=== PATIENT | female | born 1940 | race African-American/Black ===

== ENCOUNTER 2016-10-21 19:16 | Emergency (ER) | payer MEDICARE ==
[2016-10-21] MEDS ORDERED: ACETAMINOPHEN 325 MG TABLET PO ONE (20:02)
--- NOTE | 2016-10-21 20:05 | ER Document Report ---
ED Medical Screen (RME) - General Stated Complaint: HEAD PAIN Time seen by provider: 20:02 Mode of Arrival: Ambulatory Information source: Patient Notes: 76 yo female with painful scalp lump posterior occiput that started this am, getting more sore since then. No injury. TRAVEL OUTSIDE OF THE [place] IN LAST 30 DAYS: No - Related Data Allergies/Adverse Reactions: No Known Allergies Allergy (Verified 10/21/16 20:01) Past Medical History - Past Medical History Cardiac Medical History: Reports: Hx Hypertension Denies: Hx Coronary Artery Disease, Hx Heart Attack Pulmonary Medical History: Reports: Hx Asthma, Hx Bronchitis, Hx Pneumonia - 10 yrs ago Denies: Hx COPD Neurological Medical History: Denies: Hx Cerebrovascular Accident, Hx Seizures GI Medical History: Reports: Hx Gastroesophageal Reflux Disease Musculoskeltal Medical History: Reports Hx Arthritis Past Surgical History: Reports: Hx Appendectomy, Hx Bowel Surgery - colon resection, Hx Hysterectomy. Denies: Hx Pacemaker - Immunizations Hx Diphtheria, Pertussis, Tetanus Vaccination: Yes Physical Exam - Vital signs Vitals: Temp Pulse Resp BP Pulse Ox 97.8 F 77 16 170/51 H 99 10/21/16 19:25 10/21/16 19:25 10/21/16 19:25 10/21/16 19:25 10/21/16 19:25 Course - Vital Signs Vital signs: Temp Pulse Resp BP Pulse Ox 97.8 F 77 16 170/51 H 99 10/21/16 19:25 10/21/16 19:25 10/21/16 19:25 10/21/16 19:25 10/21/16 19:25
--- NOTE | 2016-10-21 20:35 | ER Document Report ---
ED General - General Chief Complaint: Skin Problem Stated Complaint: HEAD PAIN Mode of Arrival: Ambulatory Notes: Patient is a 76-year-old female who is presenting with 2 days of a progressively more painful bump on her right posterior scalp. Does describe the pain as a dull, aching pain. Touching the area worsens the pain. She has not tried anything to improve the pain. Denies any history of similar symptoms in the past. She has not seen her primary care physician regarding today's concerns. She denies any additional associated symptoms. No drainage from the area. No trauma to the area. TRAVEL OUTSIDE OF THE [place] IN LAST 30 DAYS: No - Related Data Allergies/Adverse Reactions: No Known Allergies Allergy (Verified 10/21/16 20:01) Past Medical History - General Information source: Patient - Social History Smoking Status: Never Smoker Frequency of alcohol use: None Drug Abuse: None Lives with: Spouse/Significant other Family History: Reviewed & Not Pertinent Patient has suicidal ideation: No Patient has homicidal ideation: No - Past Medical History Cardiac Medical History: Reports: Hx Hypertension Denies: Hx Coronary Artery Disease, Hx Heart Attack Pulmonary Medical History: Reports: Hx Asthma, Hx Bronchitis, Hx Pneumonia - 10 yrs ago Denies: Hx COPD Neurological Medical History: Denies: Hx Cerebrovascular Accident, Hx Seizures GI Medical History: Reports: Hx Gastroesophageal Reflux Disease Musculoskeltal Medical History: Reports Hx Arthritis Past Surgical History: Reports: Hx Appendectomy, Hx Bowel Surgery - colon resection, Hx Hysterectomy. Denies: Hx Pacemaker - Immunizations Hx Diphtheria, Pertussis, Tetanus Vaccination: Yes Hx Pneumococcal Vaccination: 12/07/11 Review of Systems - Review of Systems Notes: Constitutional: Negative for fever. Cardiovascular: Negative for chest pain. Respiratory: Negative for shortness of breath. Gastrointestinal: Negative for vomiting Musculoskeletal: Negative for back pain. Skin: Positive for right scalp cyst Neurological: Negative for weakness or numbness. 10 point ROS negative except as marked above and in HPI. Physical Exam - Vital signs Vitals: Temp Pulse Resp BP Pulse Ox 97.8 F 77 16 170/51 H 99 10/21/16 19:25 10/21/16 19:25 10/21/16 19:25 10/21/16 19:25 10/21/16 19:25 Interpretation: Hypertensive Notes: PHYSICAL EXAMINATION: GENERAL: Well-appearing, well-nourished and in no acute distress. HEAD: Atraumatic, normocephalic. EYES: sclera anicteric, conjunctiva are normal. ENT: Moist mucous membranes. NECK: Normal range of motion LUNGS: Normal work of breathing HEART: 2+ radial pulses bilaterally EXTREMITIES: no pitting or edema. No cyanosis. NEUROLOGICAL: No focal neurological deficits. Moves all extremities spontaneously and on command. PSYCH: Normal mood, normal affect. SKIN: Warm, Dry, normal turgor, small 0.5 x 0.5 cm cyst on the right posterior scalp Course - Re-evaluation Re-evalutation: 10/22/16 03:49 Patient presents with findings most consistent with a small cyst on her scalp. No additional symptoms to suggest an associated cellulitis or underlying abscess. Vitals otherwise within normal limits. I've encouraged her to use warm compresses and follow-up with dermatology if this fails to improve. At this time will discharge with return precautions and follow-up recommendations. Verbal discharge instructions given a the bedside and opportunity for questions given. Medication warnings reviewed. Patient is in agreement with this plan and has verbalized understanding of return precautions and the need for primary care follow-up in the next 24-72 hours. - Vital Signs Vital signs: Temp Pulse Resp BP Pulse Ox 97.8 F 66 18 147/68 H 97 10/21/16 21:06 10/21/16 21:06 10/21/16 21:06 10/21/16 21:06 10/21/16 21:06 Discharge - Discharge Clinical Impression: Scalp cyst Condition: Good Disposition: HOME, SELF-CARE Additional Instructions: You have a small cyst on your head. Hot compress to the area 3 times daily. Do not touch or press on the area otherwise. If this does not resolve in the next 1 week, please follow-up with your primary care physician for consideration of a dermatology referral. Please return to the emergency department immediately if you have worsening pain, the area increases in size, you develop spreading redness from the area, you develop flulike symptoms, a fever of greater than 100.4F, or any other symptoms that are concerning to you. You may also take ibuprofen 400 mg every 8 hours as needed for pain in this area. Forms: Elevated Blood Pressure Referrals: MARELY WONG MD [Primary Care Provider] - Follow up as needed
[2016-10-21 21:08] VITALS: BP 147/68
== END 2016-10-21 21:05 | disposition home or self-care (01) ==
LOC: ER 19:16
DX: D23.4 Other benign neoplasm of skin of scalp and neck (principal); I10 Essential (primary) hypertension; J45.909 Unspecified asthma, uncomplicated
CPT/HCPCS: 99283; A9270

== ENCOUNTER 2016-12-23 01:20 | Emergency (ER) | payer MEDICARE ==
[2016-12-23] MEDS ORDERED: LORAZEPAM 1 MG TABLET PO ONE (03:39)
--- NOTE | 2016-12-23 03:43 | ER Document Report ---
ED General - General Chief Complaint: Breathing Difficulty Stated Complaint: POSSIBILE ALLERGIC REACTION Time seen by provider: 03:35 Notes: Patient is a 76-year-old female that comes emergency department for chief complaint of shortness of breath and swelling in her feet on both sides. Patient states symptoms started to be noticeable yesterday, she states she feels like her "allergies are acting up". She has a history of asthma, hypertension, she denies history of CAD or CHF but takes spironolactone for fluid retention. She states that her weight has not increased, she denies any current shortness of breath, she denies any shortness of breath on exertion, she states that occasionally she is coughing. Past medical history of anxiety as well, states that she was thinking about taking her anxiety medication Ativan earlier but decided not to. TRAVEL OUTSIDE OF THE [place] IN LAST 30 DAYS: No - Related Data Allergies/Adverse Reactions: No Known Allergies Allergy (Verified 10/21/16 20:01) Past Medical History - General Information source: Patient, Relative - Social History Smoking Status: Never Smoker Chew tobacco use (# tins/day): No Frequency of alcohol use: None Drug Abuse: None Lives with: Family Family History: Reviewed & Not Pertinent Patient has suicidal ideation: No Patient has homicidal ideation: No - Past Medical History Cardiac Medical History: Reports: Hx Hypertension Denies: Hx Coronary Artery Disease, Hx Heart Attack Pulmonary Medical History: Reports: Hx Asthma, Hx Bronchitis, Hx Pneumonia - 10 yrs ago Denies: Hx COPD Neurological Medical History: Denies: Hx Cerebrovascular Accident, Hx Seizures Renal/ Medical History: Denies: Hx Peritoneal Dialysis GI Medical History: Reports: Hx Gastroesophageal Reflux Disease Musculoskeltal Medical History: Reports Hx Arthritis Past Surgical History: Reports: Hx Appendectomy, Hx Bowel Surgery - colon resection, Hx Hysterectomy. Denies: Hx Pacemaker - Immunizations Hx Diphtheria, Pertussis, Tetanus Vaccination: Yes Hx Pneumococcal Vaccination: 12/07/11 Review of Systems - Review of Systems Constitutional: See HPI EENT: See HPI Cardiovascular: No symptoms reported Respiratory: See HPI Gastrointestinal: No symptoms reported Genitourinary: No symptoms reported Female Genitourinary: No symptoms reported Musculoskeletal: No symptoms reported Skin: No symptoms reported Hematologic/Lymphatic: No symptoms reported Neurological/Psychological: See HPI Physical Exam - Vital signs Vitals: Temp Pulse Resp BP Pulse Ox 98.2 F 90 26 H 183/61 H 98 12/23/16 01:24 12/23/16 01:24 12/23/16 01:24 12/23/16 01:24 12/23/16 01:24 Interpretation: Normal - General General appearance: Alert, Anxious In distress: None - Patient appears restless and becomes tearful describing how she feels, otherwise she is very well-appearing and alert - HEENT Head: Normocephalic, Atraumatic Eyes: Normal Conjunctiva: Normal Extraocular movements intact: Yes Eyelashes: Normal Pupils: PERRL Nasal: Normal Mouth/Lips: Normal Mucous membranes: Normal Pharynx: Normal Neck: Normal - Respiratory Respiratory status: No respiratory distress Chest status: Nontender Breath sounds: Normal. No: Decreased air movement, Wheezing Chest palpation: Normal - Cardiovascular Rhythm: Regular. No: Tachycardia Heart sounds: Normal auscultation, S1 appreciated, S2 appreciated Murmur: No - Abdominal Inspection: Normal Distension: No distension Bowel sounds: Normal Tenderness: Nontender Organomegaly: No organomegaly - Back Back: Normal, Nontender. No: Tender - Extremities General upper extremity: Normal inspection, Nontender, Normal color, Normal ROM , Normal temperature General lower extremity: Normal inspection, Nontender, Normal color, Normal ROM , Normal temperature, Normal weight bearing. No: Lalo's sign - Neurological Neuro grossly intact: Yes Cognition: Normal Orientation: AAOx4 Alex Coma Scale Eye Opening: Spontaneous [place] Coma Scale Verbal: Oriented Alex Coma Scale Motor: Obeys Commands Alex Coma Scale Total: 15 Speech: Normal Motor strength normal: LUE, RUE, LLE, RLE Sensory: Normal - Psychological Associated symptoms: Tearful - Skin Skin Temperature: Warm Skin Moisture: Dry Skin Color: Normal Course - Re-evaluation Re-evalutation: Patient tearful on initial exam, appears anxious and restless, patient given Ativan which she is very prescribed at home to take for this kind of thing. Lungs clear to auscultation, no hypoxia, blood pressure normalized after treatment, patient has a soft abdomen, denying any pain, is extremely well appearing especially after the Ativan. Patient smiling and states she feels much better after the medication. EKG shows borderline R-wave progression but no other abnormalities, no acute abnormalities, chest x-ray unremarkable, CBC, chemistry, BNP unremarkable, patient does not have any significant lower extremity swelling. On reexamination patient states that she just felt like she needed to have a bowel movement and now no longer feels better at all, denies any current symptoms, states she wants to go home, daughter is in agreement with this, patient instructed to follow-up with her primary care and return if she develops any concerning symptoms. - Vital Signs Vital signs: Temp Pulse Resp BP Pulse Ox 98.3 F 90 21 H 113/52 L 97 12/23/16 06:19 12/23/16 01:24 12/23/16 06:17 12/23/16 06:17 12/23/16 06:17 - Laboratory Result Diagrams: 12/23/16 04:35 12/23/16 04:35 Laboratory results interpreted by me: 12/23/16 12/23/16 04:35 04:35 RDW 15.7 H Glucose 131 H AST 62 H Discharge - Discharge Clinical Impression: Respiratory symptoms, Anxiety Condition: Stable Disposition: HOME, SELF-CARE Additional Instructions: No concerning abnormalities are seen on her workup today. Continue your home medications, if needed take a stool softener to have bowel movements, take your lorazepam for anxiety. Follow-up with your primary care provider this week. Return to the emergency department for any concerning or worsening symptoms. Prescriptions: Docusate Sodium [Colace 100 mg Capsule] 100 mg PO DAILY #30 capsule Referrals: MARELY WONG MD [Primary Care Provider] - Follow up as needed
[2016-12-23 04:53] LABS: ABSOLUTE BASOPHILS # (AUTO) 0.1 10^3/uL (0.0-0.2); ABSOLUTE LYMPHOCYTES (AUTO) 1.8 10^3/uL (0.5-4.7); ABSOLUTE MONOCYTES (AUTO) 0.7 10^3/uL (0.1-1.4); ABSOLUTE NEUT (AUTO) 4.3 10^3/uL (1.7-8.2); BASOPHILS % (AUTO) 0.9 % (0-2); EOSINOPHILS % (AUTO) 0.5 % (0-6); HEMATOCRIT 42.5 % (36.0-47.0); HEMOGLOBIN 14.1 g/dL (12.0-15.5); HGB HCT DIFFERENCE -0.2; LYMPHOCYTES % (AUTO) 26.1 % (13-45); MEAN CORPUSCULAR HEMOGLOBIN 28.4 pg (27.0-33.4); MEAN CORPUSCULAR HGB CONC 33.2 g/dL (32.0-36.0); MEAN CORPUSCULAR VOLUME 86 fl (80-97); MONOCYTES % (AUTO) 10.5 % (3-13); RED BLOOD COUNT 4.97 10^6/uL (3.72-5.28); RED CELL DISTRIBUTION WIDTH 15.7 % (11.5-14.0); WHITE BLOOD COUNT 6.9 10^3/uL (4.0-10.5)
[2016-12-23 05:00] LABS: ALANINE AMINOTRANSFERASE 20 U/L (9-52); ALBUMIN 4.2 g/dL (3.5-5.0); ALKALINE PHOSPHATASE 94 U/L (38-126); ANION GAP 12 (5-19); ASPARTATE AMINO TRANSFERASE 62 U/L (14-36); BILIRUBIN,TOTAL 0.8 mg/dL (0.2-1.3); BLOOD UREA NITROGEN 12 mg/dL (7-20); CALCIUM 9.9 mg/dL (8.4-10.2); CARBON DIOXIDE 26 mmol/L (22-30); CHLORIDE 100 mmol/L (98-107); CREATINE KINASE 57 U/L (30-135); CREATININE RESULT 0.65 mg/dL (0.52-1.25); GLUCOSE 131 mg/dL (75-110); POTASSIUM 4.1 mmol/L (3.6-5.0); SODIUM 138.2 mmol/L (137-145); TOTAL PROTEIN 7.8 g/dL (6.3-8.2)
[2016-12-23 05:11] LABS: CREATINE KINASE MB 0.25 ng/mL (<4.55)
[2016-12-23 05:16] LABS: TROPONIN I < 0.012 ng/mL
[2016-12-23 06:19] VITALS: BP 113/52
--- NOTE | 2016-12-23 20:09 | EKG REPORT ---
SEVERITY:- ABNORMAL ECG - SINUS RHYTHM PROBABLE LEFT ATRIAL ABNORMALITY PROBABLE LEFT VENTRICULAR HYPERTROPHY NONSPECIFIC T ABNORMALITIES, INFERIOR LEADS : Confirmed by: Adonay Nathan 23-Dec-2016 20:07:52
== END 2016-12-23 06:28 | disposition home or self-care (01) ==
LOC: ER 01:20
DX: J45.909 Unspecified asthma, uncomplicated (principal); F41.9 Anxiety disorder, unspecified; R06.02 Shortness of breath; I10 Essential (primary) hypertension; R05 Cough; R60.9 Edema, unspecified; Z79.899 Other long term (current) drug therapy; Z87.01 Personal history of pneumonia (recurrent)
CPT/HCPCS: 93005; 99285; 36415; 82553; 82550; 85025; 80053; 84484; 83880; 71010; 93010; A9270

== ENCOUNTER 2017-04-06 20:47 | Emergency (ER) | payer MEDICARE ==
[2017-04-06] MEDS ORDERED: DIPHENHYDRAMINE HCL 25 MG CAPSULE PO ONE (22:14)
--- NOTE | 2017-04-06 22:17 | ER Document Report ---
HPI - HPI Patient complains to provider of: insect bite Onset: This afternoon Onset/Duration: Sudden Severity: Severe Pain Level: 5 Context: Patient presents emergency department with complaints of right hand swollen. She reports that this afternoon she was going up the steps she grabbed onto the metal rail that had a vine going up it and felt a sharp sting or bite to her hand. Reports she is not allergic to any insects. Did not see what bit her. Has FROM to her hand, no weakness, no bite or insect trinh noted. Associated Symptoms: None Exacerbated by: Denies Relieved by: Denies Similar symptoms previously: No Recently seen / treated by doctor: No - REPRODUCTIVE Reproductive: DENIES: : - DERM Skin Color: Normal Past Medical History - General Information source: Patient - Social History Smoking Status: Former Smoker Cigarette use (# per day): No Chew tobacco use (# tins/day): No Frequency of alcohol use: None Drug Abuse: None Family History: Reviewed & Not Pertinent Patient has suicidal ideation: No Patient has homicidal ideation: No - Past Medical History Cardiac Medical History: Reports: Hx Hypertension Denies: Hx Coronary Artery Disease, Hx Heart Attack Pulmonary Medical History: Reports: Hx Asthma, Hx Bronchitis, Hx Pneumonia - 10 yrs ago Denies: Hx COPD Neurological Medical History: Denies: Hx Cerebrovascular Accident, Hx Seizures Renal/ Medical History: Denies: Hx Peritoneal Dialysis GI Medical History: Reports: Hx Gastroesophageal Reflux Disease Musculoskeltal Medical History: Reports Hx Arthritis Past Surgical History: Reports: Hx Appendectomy, Hx Bowel Surgery - colon resection, Hx Hysterectomy. Denies: Hx Pacemaker - Immunizations Hx Diphtheria, Pertussis, Tetanus Vaccination: Yes Hx Pneumococcal Vaccination: 12/07/11 Vertical Provider Document - CONSTITUTIONAL Agree With Documented VS: Yes Exam Limitations: No Limitations General Appearance: WD/WN, No Apparent Distress - INFECTION CONTROL TRAVEL OUTSIDE OF THE [place] IN LAST 30 DAYS: No - HEENT HEENT: Atraumatic, Normocephalic - NECK Neck: Normal Inspection, Supple - RESPIRATORY Respiratory: Breath Sounds Normal, No Respiratory Distress O2 Sat by Pulse Oximetry: 100 - CARDIOVASCULAR Cardiovascular: Regular Rate - MUSCULOSKELETAL/EXTREMETIES Musculoskeletal/Extremeties: MAEW, FROM, Tender - right dorsal hand ttp, slight swelling with warmth to medial dorsal of hand, no obvious insect sting or bite noted, no trinh, no open wounds, brisk cap refill - NEURO Level of Consciousness: Awake, Alert, Appropriate Motor/Sensory: No Motor Deficit - DERM Integumentary: Warm, Dry Adult Front & Back Diagram: 1 - swelling/warmth/ erythema Course - Re-evaluation Re-evalutation: 04/06/17 22:20 Patient provided with ice packs. Patient was also instructed on Benadryl importance of monitoring the site for signs of infection. - Vital Signs Vital signs: Temp Pulse Resp BP Pulse Ox 98.1 F 73 18 160/69 H 100 04/06/17 21:19 04/06/17 21:19 04/06/17 21:19 04/06/17 21:19 04/06/17 21:19 Discharge - Discharge Clinical Impression: Elevated blood pressure reading Insect bite Qualifiers: Encounter type: initial encounter Qualified Code(s): W57.XXXA - Bitten or stung by nonvenomous insect and other nonvenomous arthropods, initial encounter Condition: Stable Disposition: HOME, SELF-CARE Instructions: Swollen Insect Bite or Sting ([facility]), Use of Diphenhydramine Additional Instructions: *You have been treated for a swollen insect bite *Take benadryl as indicated *Monitor the site for signs of infection such as increasing pain, redness, swelling, warmth *elevate your hand, place ice packs as indicated- 20 minutes on, 20 minutes off *Follow up with your primary care provider within one week for recheck *Return to ED for signs of infection, worsening condition, changes, needs Monitor your blood pressure. Your blood pressure was elevated today. This may be because you were anxious, in pain or because you need medication. It is important to follow up with your primary care provider for full evaluation. Forms: Elevated Blood Pressure Referrals: ROSAURA WILLINGHAM PA-C [Primary Care Provider] - Follow up in 1 week
[2017-04-06 23:08] VITALS: BP 165/60
== END 2017-04-06 23:06 | disposition home or self-care (01) ==
LOC: ER 20:47
DX: S60.561A Insect bite (nonvenomous) of right hand, initial encounter (principal); M79.89 Other specified soft tissue disorders; R03.0 Elevated blood-pressure reading, without diagnosis of hypertension; Z87.891 Personal history of nicotine dependence; W57.XXXA Bitten or stung by nonvenomous insect and other nonvenomous arthropods, initial encounter
CPT/HCPCS: 99281; A9270

== ENCOUNTER 2018-03-13 19:24 | Emergency (ER) | payer MEDICARE ==
--- NOTE | 2018-03-13 21:14 | ER Document Report ---
ED General - General Chief Complaint: Allergy Symptoms Stated Complaint: POSSIBLE ALLERGIC REACTION Time Seen by Provider: 03/13/18 20:34 TRAVEL OUTSIDE OF THE [place] IN LAST 30 DAYS: No - HPI Patient complains to provider of: Rash left antecubital fossa Notes: Patient coming in with a rash and arm antecubital fossa ongoing for the last 2 days. Patient denies any fever chills nausea vomiting diarrhea. Patient denies any new contacts new soaps new detergents. Patient states it is itchy - Related Data Allergies/Adverse Reactions: acetaminophen [From Percocet] Allergy (Verified 04/06/17 22:12) oxycodone [From Percocet] Allergy (Verified 04/06/17 22:12) Past Medical History - Social History Smoking Status: Never Smoker Chew tobacco use (# tins/day): No Drug Abuse: None Family History: Reviewed & Not Pertinent Patient has suicidal ideation: No Patient has homicidal ideation: No - Past Medical History Cardiac Medical History: Reports: Hx Hypertension Denies: Hx Coronary Artery Disease, Hx Heart Attack Pulmonary Medical History: Reports: Hx Asthma, Hx Bronchitis, Hx Pneumonia - 10 yrs ago Denies: Hx COPD Neurological Medical History: Denies: Hx Cerebrovascular Accident, Hx Seizures Renal/ Medical History: Denies: Hx Peritoneal Dialysis GI Medical History: Reports: Hx Gastroesophageal Reflux Disease Musculoskeltal Medical History: Reports Hx Arthritis Past Surgical History: Reports: Hx Appendectomy, Hx Bowel Surgery - colon resection, Hx Hysterectomy. Denies: Hx Pacemaker - Immunizations Hx Diphtheria, Pertussis, Tetanus Vaccination: Yes Hx Pneumococcal Vaccination: 12/07/11 Review of Systems - Review of Systems Constitutional: No symptoms reported EENT: No symptoms reported Cardiovascular: No symptoms reported Respiratory: No symptoms reported Gastrointestinal: No symptoms reported Genitourinary: No symptoms reported Female Genitourinary: No symptoms reported Musculoskeletal: No symptoms reported Skin: Rash Hematologic/Lymphatic: No symptoms reported Neurological/Psychological: No symptoms reported -: Yes All other systems reviewed and negative Physical Exam - Vital signs Vitals: Temp Pulse Resp BP Pulse Ox 99.1 F 86 20 186/62 H 99 03/13/18 19:33 03/13/18 19:33 03/13/18 19:33 03/13/18 19:33 03/13/18 19:33 Interpretation: Normal - General General appearance: Appears well, Alert - HEENT Head: Normocephalic, Atraumatic Eyes: Normal Pupils: PERRL - Respiratory Respiratory status: No respiratory distress Chest status: Nontender Breath sounds: Normal Chest palpation: Normal - Cardiovascular Rhythm: Regular Heart sounds: Normal auscultation Murmur: No - Abdominal Inspection: Normal Distension: No distension Bowel sounds: Normal Tenderness: Nontender Organomegaly: No organomegaly - Back Back: Normal, Nontender - Extremities General upper extremity: Nontender, Normal color, Normal ROM, Normal temperature. No: Normal inspection - Patient with a rash in antecubital fossa on the left side that is blanchable mildly raised macular according to the patient is pleuritic General lower extremity: Normal inspection, Nontender, Normal color, Normal ROM , Normal temperature, Normal weight bearing. No: Lalo's sign - Neurological Neuro grossly intact: Yes Cognition: Normal Orientation: AAOx4 [place] Coma Scale Eye Opening: Spontaneous Alex Coma Scale Verbal: Oriented Alex Coma Scale Motor: Obeys Commands [place] Coma Scale Total: 15 Speech: Normal Motor strength normal: LUE, RUE, LLE, RLE Sensory: Normal - Psychological Associated symptoms: Normal affect, Normal mood - Skin Skin Temperature: Warm Skin Moisture: Dry Skin Color: Normal Course - Re-evaluation Re-evalutation: 03/14/18 03:37 Possible contact dermatitis of the patient's rash. Patient will be prescribed Westcort recommended to continue with her antihistamine therapy at home Zyrtec. Patient otherwise has no signs of any significant pathology was discharged home - Vital Signs Vital signs: Temp Pulse Resp BP Pulse Ox 98.7 F 70 20 152/61 H 100 03/13/18 21:43 03/13/18 21:43 03/13/18 21:43 03/13/18 21:43 03/13/18 21:43 Discharge - Discharge Clinical Impression: Contact dermatitis Qualifiers: Contact dermatitis type: allergic Contact dermatitis trigger: unspecified trigger Qualified Code(s): L23.9 - Allergic contact dermatitis, unspecified cause Condition: Stable Disposition: HOME, SELF-CARE Instructions: Contact Dermatitis ([facility]) Additional Instructions: Please take Zyrtec as recommended by her family physician 1 tablet each day this would help out with any itching and also help clear the rash. Please apply the steroid cream twice a day as prescribed return to ER for any concerning issues follow-up with your primary care physician in 3-5 days. Prescriptions: Cetirizine HCl [Zyrtec 10 mg Tablet] 1 tab PO DAILY #30 tablet Hydrocortisone Valerate [Westcort] 15 gm TP BID #30 cream.gm. Referrals: ROSAURA WILLINGHAM PA-C [Primary Care Provider] - Follow up as needed
[2018-03-13 21:46] VITALS: BP 152/61
== END 2018-03-13 21:46 | disposition home or self-care (01) ==
LOC: ER 19:24
DX: L23.9 Allergic contact dermatitis, unspecified cause (principal); I10 Essential (primary) hypertension; J45.909 Unspecified asthma, uncomplicated; Z88.6 Allergy status to analgesic agent; Z88.5 Allergy status to narcotic agent
CPT/HCPCS: 99283

== ENCOUNTER 2018-07-26 07:39 | Emergency (ER) | payer MEDICARE ==
[2018-07-26 08:00] VITALS: BP 156/54
[2018-07-26] MEDS ORDERED: PREDNISONE 20 MG TABLET PO ONE (08:19)
[2018-07-26] MEDS ORDERED: DIPHENHYDRAMINE HCL 25 MG CAPSULE PO ONE (08:20)
--- NOTE | 2018-07-26 08:25 | ER Document Report ---
HPI - HPI Patient complains to provider of: Skin rash Onset: Yesterday Onset/Duration: Persistent Quality of pain: No pain Pain Level: 0 Context: Patient complains of pruritic skin rash that started last night. Patient states she has an area to the right upper arm and she noticed an area to her right leg. Patient states the rash to the right thigh has resolved but she has since developed a rash to the left thigh. Patient does report a history of allergies and does have a prescription for an epinephrine. Patient denies any new medications foods or detergents. Patient denies any chest pain or difficulty breathing or facial swelling. Associated Symptoms: Other - Skin rash. denies: Chest pain, Nonproductive cough , Productive cough Exacerbated by: Denies Relieved by: Denies Similar symptoms previously: Yes Recently seen / treated by doctor: No - ROS ROS below otherwise negative: Yes Systems Reviewed and Negative: Yes All other systems reviewed and negative - CONSTITUTIONAL Constitutional: DENIES: Fever - EENT EENT: DENIES: Sore Throat, Congestion - CARDIOVASCULAR Cardiovascular: DENIES: Chest pain - RESPIRATORY Respiratory: DENIES: Trouble Breathing, Coughing - GASTROINTESTINAL Gastrointestinal: DENIES: Patient vomiting - REPRODUCTIVE Reproductive: DENIES: : - DERM Skin Color: Normal Skin Problems: Rash Past Medical History - General Information source: Patient - Social History Smoking Status: Never Smoker Frequency of alcohol use: None Drug Abuse: None Lives with: Family Family History: Reviewed & Not Pertinent - Past Medical History Cardiac Medical History: Reports: Hx Hypertension Denies: Hx Coronary Artery Disease, Hx Heart Attack Pulmonary Medical History: Reports: Hx Asthma, Hx Bronchitis, Hx Pneumonia - 10 yrs ago Denies: Hx COPD Neurological Medical History: Denies: Hx Cerebrovascular Accident, Hx Seizures Renal/ Medical History: Denies: Hx Peritoneal Dialysis GI Medical History: Reports: Hx Gastroesophageal Reflux Disease Musculoskeletal Medical History: Reports Hx Arthritis Past Surgical History: Reports: Hx Appendectomy, Hx Bowel Surgery - colon resection, Hx Hysterectomy. Denies: Hx Pacemaker - Immunizations Hx Diphtheria, Pertussis, Tetanus Vaccination: Yes Hx Pneumococcal Vaccination: 12/07/11 Vertical Provider Document - CONSTITUTIONAL Agree With Documented VS: Yes Exam Limitations: No Limitations General Appearance: WD/WN, No Apparent Distress - INFECTION CONTROL TRAVEL OUTSIDE OF THE [place] IN LAST 30 DAYS: No - HEENT HEENT: Atraumatic, Normal ENT Exam, Normocephalic Notes: No angioedema, no potential airway compromise - NECK Neck: Normal Inspection, Supple. negative: Lymphadenopathy-Left, Lymphadenopathy-Right - RESPIRATORY Respiratory: Breath Sounds Normal, No Respiratory Distress, Chest Non-Tender - CARDIOVASCULAR Cardiovascular: Regular Rate, Regular Rhythm, No Murmur - BACK Back: Normal Inspection - MUSCULOSKELETAL/EXTREMETIES Musculoskeletal/Extremeties: MAEW, FROM, Edema - Bilateral pedal - NEURO Level of Consciousness: Awake, Alert, Appropriate Motor/Sensory: No Motor Deficit - DERM Integumentary: Warm, Dry, Rash - Erythematous macular rash to anterior aspect of left thigh and medial aspect of right upper arm Course - Re-evaluation Re-evalutation: 07/26/18 08:23 Patient with a history of urticaria in the past and does have a prescription for Xyzal although did not take that this morning. Patient states that she did have a rash initially to the right thigh but that has resolved at this time. Patient without any concerning symptoms for anaphylaxis or respiratory distress. Patient stable for discharge at this time. - Vital Signs Vital signs: Temp Pulse Resp BP Pulse Ox 97.9 F 68 16 156/54 H 98 07/26/18 07:43 07/26/18 07:43 07/26/18 07:43 07/26/18 07:43 07/26/18 07:43 Discharge - Discharge Clinical Impression: Skin rash Condition: Stable Disposition: HOME, SELF-CARE Instructions: Acute Urticaria ([facility]), Steroid Medication Additional Instructions: Return immediately for any new or worsening symptoms Followup with your primary care provider, call tomorrow to make a followup appointment Take your xyzal medication that you have at home as prescribed Follow-up with your state director for recheck Prescriptions: Prednisone [Deltasone 20 mg Tablet] 2 tab PO DAILY 4 Days tablet Referrals: ROSAURA WILLINGHAM PA-C [Primary Care Provider] - Follow up as needed
== END 2018-07-26 08:38 | disposition home or self-care (01) ==
LOC: ER 07:39
DX: R21 Rash and other nonspecific skin eruption (principal); I10 Essential (primary) hypertension; Z90.710 Acquired absence of both cervix and uterus
CPT/HCPCS: 99282; A9270 ×2; J7512

== ENCOUNTER 2018-09-26 13:51 | Emergency (ER) | payer MEDICARE ==
[2018-09-26 13:58] VITALS: BP 165/61
--- NOTE | 2018-09-26 14:17 | ER Document Report ---
ED Medical Screen (RME) - General Chief Complaint: Allergic Reaction Stated Complaint: NUMBNESS AROUND MOUTH Time Seen by Provider: 09/26/18 14:16 Notes: 78 years old difficult historian with a history of anxiety most of the time crying. States that she is having runny nose sore throat and tingling sensation around the mouth. TRAVEL OUTSIDE OF THE [place] IN LAST 30 DAYS: No - Related Data Allergies/Adverse Reactions: acetaminophen [From Percocet] Allergy (Verified 09/26/18 13:53) oxycodone [From Percocet] Allergy (Verified 09/26/18 13:53) aspirin Adverse Reaction (Verified 09/26/18 14:10) Past Medical History - Social History Frequency of alcohol use: None Drug Abuse: None - Past Medical History Cardiac Medical History: Reports: Hx Hypertension Denies: Hx Coronary Artery Disease, Hx Heart Attack Pulmonary Medical History: Reports: Hx Asthma, Hx Bronchitis, Hx Pneumonia - 10 yrs ago Denies: Hx COPD Neurological Medical History: Denies: Hx Cerebrovascular Accident, Hx Seizures Renal/ Medical History: Denies: Hx Peritoneal Dialysis GI Medical History: Reports: Hx Gastroesophageal Reflux Disease Musculoskeltal Medical History: Reports Hx Arthritis Past Surgical History: Reports: Hx Appendectomy, Hx Bowel Surgery - colon resection, Hx Hysterectomy. Denies: Hx Pacemaker - Immunizations Hx Diphtheria, Pertussis, Tetanus Vaccination: Yes Physical Exam - Vital signs Vitals: Temp Pulse Resp BP Pulse Ox 98.6 F 88 16 165/61 H 98 09/26/18 13:55 09/26/18 13:55 09/26/18 13:55 09/26/18 13:55 09/26/18 13:55 Course - Vital Signs Vital signs: Temp Pulse Resp BP Pulse Ox 98.6 F 88 16 165/61 H 98 09/26/18 13:55 09/26/18 13:55 09/26/18 13:55 09/26/18 13:55 09/26/18 13:55 Doctor's Discharge - Discharge Referrals: ROSAURA WILLINGHAM PA-C [Primary Care Provider] - Follow up as needed
[2018-09-26 14:50] LABS: HEMATOCRIT 45.6 % (36.0-47.0); MEAN CORPUSCULAR HEMOGLOBIN 28.3 pg (27.0-33.4); MEAN CORPUSCULAR VOLUME 86 fl (80-97); PLATELET COUNT 263 10^3/uL (150-450); RED BLOOD COUNT 5.32 10^6/uL (3.72-5.28); RED CELL DISTRIBUTION WIDTH 14.4 % (11.5-14.0); WHITE BLOOD COUNT 5.4 10^3/uL (4.0-10.5)
[2018-09-26 15:10] LABS: A TYPE INFLUENZA AG NEGATIVE (NEGATIVE); ALANINE AMINOTRANSFERASE 14 U/L (9-52); ALBUMIN 4.2 g/dL (3.5-5.0); ALKALINE PHOSPHATASE 104 U/L (38-126); ANION GAP 12 (5-19); ASPARTATE AMINO TRANSFERASE 22 U/L (14-36); B INFLUENZA AG NEGATIVE (NEGATIVE); BILIRUBIN,DIRECT 0.3 mg/dL (0.0-0.4); BILIRUBIN,TOTAL 0.6 mg/dL (0.2-1.3); BLOOD UREA NITROGEN 13 mg/dL (7-20); CALCIUM 9.7 mg/dL (8.4-10.2); CARBON DIOXIDE 28 mmol/L (22-30); CHLORIDE 99 mmol/L (98-107); GLUCOSE 129 mg/dL (75-110); SODIUM 138.8 mmol/L (137-145); TOTAL PROTEIN 7.1 g/dL (6.3-8.2)
[2018-09-26 15:43] LABS: ABSOLUTE LYMPHOCYTES# (MANUAL) 1.7 10^3/uL (0.5-4.7); ABSOLUTE MONOCYTES # (MANUAL) 0.4 10^3/uL (0.1-1.4); ABSOLUTE NEUTROPHILS# (MANUAL) 3.2 10^3/uL (1.7-8.2); BASOPHILS % (MANUAL) 1 % (0-2); EOSINOPHILS % (MANUAL) 0 % (0-6); LYMPHOCYTES % (MANUAL) 30 % (13-45); MONOCYTES % (MANUAL) 8 % (3-13); SEGMENTED NEUTROPHILS % (MAN) 59 % (42-78); TOTAL CELLS COUNTED 100
[2018-09-26 15:44] LABS: HYPOCHROMASIA SLIGHT; PLATELET COMMENT ADEQUATE
--- NOTE | 2018-09-26 16:31 | ER Document Report ---
ED General - General Chief Complaint: Allergic Reaction Stated Complaint: NUMBNESS AROUND MOUTH Time Seen by Provider: 09/26/18 14:16 TRAVEL OUTSIDE OF THE [place] IN LAST 30 DAYS: No - HPI Patient complains to provider of: Multiple complaints Notes: Patient with multiple complaints mostly concerned about numbness and tingling of the oral mucosa. Patient states woke up this morning with sore throat numbness and tingling of her upper and lower lip. Patient states it is global not unilateral patient states also had issues with her anxiety did take Lorazepam prior to arrival here in the ER. Patient otherwise upon my evaluation is resting comfortably and laughing with family members at bedside. Denies any recent travel denies any fevers chills nausea vomiting diarrhea. Patient is also concerned about her ears stating that she has been having problems with her ears. Patient denies any changes to medications looks to be no obvious distress upon my evaluation - Related Data Allergies/Adverse Reactions: acetaminophen [From Percocet] Allergy (Verified 09/26/18 13:53) oxycodone [From Percocet] Allergy (Verified 09/26/18 13:53) aspirin Adverse Reaction (Verified 09/26/18 14:10) Past Medical History - Social History Smoking Status: Never Smoker Frequency of alcohol use: None Drug Abuse: None Family History: Reviewed & Not Pertinent Patient has suicidal ideation: No Patient has homicidal ideation: No - Past Medical History Cardiac Medical History: Reports: Hx Hypertension Denies: Hx Coronary Artery Disease, Hx Heart Attack Pulmonary Medical History: Reports: Hx Asthma, Hx Bronchitis, Hx Pneumonia - 10 yrs ago Denies: Hx COPD Neurological Medical History: Denies: Hx Cerebrovascular Accident, Hx Seizures Renal/ Medical History: Denies: Hx Peritoneal Dialysis GI Medical History: Reports: Hx Gastroesophageal Reflux Disease Musculoskeletal Medical History: Reports Hx Arthritis Past Surgical History: Reports: Hx Appendectomy, Hx Bowel Surgery - colon resection, Hx Hysterectomy. Denies: Hx Pacemaker - Immunizations Hx Diphtheria, Pertussis, Tetanus Vaccination: Yes Hx Pneumococcal Vaccination: 12/07/11 Review of Systems - Review of Systems Constitutional: No symptoms reported EENT: Ear pain Cardiovascular: No symptoms reported Respiratory: No symptoms reported Gastrointestinal: No symptoms reported Genitourinary: No symptoms reported Female Genitourinary: No symptoms reported Musculoskeletal: No symptoms reported Skin: No symptoms reported Hematologic/Lymphatic: No symptoms reported Neurological/Psychological: Anxiety, Tingling -: Yes All other systems reviewed and negative Physical Exam - Vital signs Vitals: Temp Pulse Resp BP Pulse Ox 98.6 F 88 16 165/61 H 98 09/26/18 13:55 09/26/18 13:55 09/26/18 13:55 09/26/18 13:55 09/26/18 13:55 Interpretation: Normal - General General appearance: Appears well, Alert - HEENT Head: Normocephalic, Atraumatic Eyes: Normal Conjunctiva: Normal Cornea: Normal Extraocular movements intact: Yes Eyelashes: Normal Pupils: PERRL Ears: Normal External canal: Normal Tympanic membrane: Normal Sinus: Normal Nasal: Normal Mouth/Lips: Normal Pharynx: Normal Neck: Normal - Respiratory Respiratory status: No respiratory distress Chest status: Nontender Breath sounds: Normal Chest palpation: Normal - Cardiovascular Rhythm: Regular Heart sounds: Normal auscultation Murmur: No - Abdominal Inspection: Normal Distension: No distension Bowel sounds: Normal Tenderness: Nontender Organomegaly: No organomegaly - Back Back: Normal, Nontender - Extremities General upper extremity: Normal inspection, Nontender, Normal color, Normal ROM , Normal temperature General lower extremity: Normal inspection, Nontender, Normal color, Normal ROM , Normal temperature, Normal weight bearing. No: Lalo's sign - Neurological Neuro grossly intact: Yes Cognition: Normal Orientation: AAOx4 Alex Coma Scale Eye Opening: Spontaneous Alex Coma Scale Verbal: Oriented [place] Coma Scale Motor: Obeys Commands [place] Coma Scale Total: 15 Speech: Normal Motor strength normal: LUE, RUE, LLE, RLE Additional motor exam normals: Equal sawyer helper Sensory: Normal - Psychological Associated symptoms: Normal affect, Normal mood - Skin Skin Temperature: Warm Skin Moisture: Dry Skin Color: Normal Course - Re-evaluation Re-evalutation: 09/26/18 20:21 Patient with a normal neurological examination no laboratory findings suggestive of any critical pathology. Possible etiology of the patient's paresthesias could be her underlying anxiety. Reassured patient to continue on her home medications recommend follow-up with her primary care physician. States understanding patient will be discharged home. - Vital Signs Vital signs: Temp Pulse Resp BP Pulse Ox 98.6 F 88 16 165/61 H 98 09/26/18 13:55 09/26/18 13:55 09/26/18 13:55 09/26/18 13:55 09/26/18 13:55 - Laboratory Result Diagrams: 09/26/18 14:34 09/26/18 14:34 Laboratory results interpreted by me: 09/26/18 09/26/18 14:34 14:34 RBC 5.32 H RDW 14.4 H Glucose 129 H Discharge - Discharge Condition: Good Disposition: HOME, SELF-CARE Instructions: Anxiety ([facility]), Numbness or Paresthesia ([facility]) Additional Instructions: Your laboratory studies not show any signs of significant pathology. Do believe some the numbness tingling or any mouth can be related to your underlying anxiety. Please continue your home medications as prescribed we will not add any medications at this time will recommend following up with your primary care physician return to ER symptoms worsen. Referrals: ROSAURA WILLINGHAM PA-C [Primary Care Provider] - Follow up in 3-5 days
== END 2018-09-26 16:39 | disposition home or self-care (01) ==
LOC: ER 13:51
DX: R20.2 Paresthesia of skin (principal); F41.9 Anxiety disorder, unspecified; T78.40XA Allergy, unspecified, initial encounter; X58.XXXA Exposure to other specified factors, initial encounter; I10 Essential (primary) hypertension; Z88.6 Allergy status to analgesic agent; Z90.710 Acquired absence of both cervix and uterus
CPT/HCPCS: 36415; 80053; 85025; 87070; 87804; 87880; 99283

== ENCOUNTER 2018-10-22 00:47 | Emergency (ER) | payer MEDICARE ==
--- NOTE | 2018-10-22 01:22 | ER Document Report ---
ED General - General Chief Complaint: Allergic Reaction Stated Complaint: POSSIBLE ALLERGIC REACTION Time Seen by Provider: 10/22/18 01:06 Notes: Patient is a 78-year-old female who presents with complaint of an onset of swelling where she was at the house today. She says she denies any swelling to her face or mouth or tongue. She not have any itching or rash. She felt that she was swelling over her extremities and abdomen. She went to her doctor and says her doctor gave her 2 pills. She is unsure what the 2 pills were. She then came to the ER and says the swelling is gone. She says that she has bad allergies. She takes both Singulair and a long-acting antihistamine for allergies. She thinks this is related to her allergies; however, she did not have any redness, she did not have a rash, she did not have any itching. TRAVEL OUTSIDE OF THE [place] IN LAST 30 DAYS: No - Related Data Allergies/Adverse Reactions: acetaminophen [From Percocet] Allergy (Verified 09/26/18 13:53) oxycodone [From Percocet] Allergy (Verified 09/26/18 13:53) aspirin Adverse Reaction (Verified 09/26/18 14:10) Past Medical History - Social History Smoking Status: Never Smoker Frequency of alcohol use: None Drug Abuse: None Family History: Reviewed & Not Pertinent - Past Medical History Cardiac Medical History: Reports: Hx Hypertension Denies: Hx Coronary Artery Disease, Hx Heart Attack Pulmonary Medical History: Reports: Hx Asthma, Hx Bronchitis, Hx Pneumonia - 10 yrs ago Denies: Hx COPD Neurological Medical History: Denies: Hx Cerebrovascular Accident, Hx Seizures Renal/ Medical History: Denies: Hx Peritoneal Dialysis GI Medical History: Reports: Hx Gastroesophageal Reflux Disease Musculoskeletal Medical History: Reports Hx Arthritis Past Surgical History: Reports: Hx Appendectomy, Hx Bowel Surgery - colon resection, Hx Hysterectomy. Denies: Hx Pacemaker - Immunizations Hx Diphtheria, Pertussis, Tetanus Vaccination: Yes Hx Pneumococcal Vaccination: 12/07/11 Review of Systems - Review of Systems Notes: My Normal Review Basic REVIEW OF SYSTEMS: CONSTITUTIONAL : Denies fever, chills, or sweats. Denies recent illness. EENT: Denies eye, ear, throat, or mouth pain or symptoms. Denies nasal or sinus congestion. CARDIOVASCULAR: Denies chest pain. RESPIRATORY: Denies cough, cold, or chest congestion. Denies shortness of breath, difficulty breathing, or wheezing. GASTROINTESTINAL: Denies abdominal pain. Denies nausea, vomiting, or diarrhea. MUSCULOSKELETAL: Sensation swelling in extremities. SKIN: Denies rash or skin lesions. NEUROLOGICAL: Denies altered mental status or loss of consciousness. Denies headache. Denies weakness or paralysis or loss of use of either side. Denies problems with gait or speech. Denies sensory or motor loss. ALL OTHER SYSTEMS REVIEWED AND NEGATIVE. Physical Exam - Vital signs Vitals: Temp Pulse Resp BP Pulse Ox 98.3 F 87 21 H 151/67 H 98 10/22/18 00:52 10/22/18 00:52 10/22/18 00:52 10/22/18 00:52 10/22/18 00:52 - Notes Notes: General Appearance: Well nourished, alert, cooperative, no acute distress, no obvious discomfort. Appearing. Vitals: reviewed, See vital signs table. Head: no swelling or tenderness to the head Eyes: PERRL, EOMI, Conjuctiva clear Mouth: No decreasd moisture Throat: No tonsillar inflammation, No airway obstruction, No lymphadenopathy. No pharyngeal or glossal swelling. Lungs: No wheezing, No rales, No rhonci, No accessory muscle use, good air exchange bilaterally. Heart: Normal rate, Regular rythm, No murmur, no rub Abdomen: Normal BS, soft, No rigidity, No abdominal tenderness, No guarding, no rebound, no abdominal masses, no organomegaly Extremities: strength 5/5 in all extremities, good pulses in all extremities, no swelling or tenderness in the extremities, no edema. Skin: warm, dry, appropriate color, no rash Neuro: speech clear, oriented x 3, normal affect, responds appropriately to questions. Course - Re-evaluation Re-evalutation: 10/22/18 03:39 I feel the patient is safe to be discharged home. She looks very well on exam. She has no signs of any swelling or edema. She is no signs of any airway compromise. She has no rash or itching. I am not convinced that what she had was allergic reaction being that she had no rash or itching or anything else associated with it that would suggest it was otherwise an allergic reaction. Patient is convinced it was. Patient is very anxious on exam. I looked through some of her previous visits and they usually are anxiety related. Unclear if this itself could be anxiety related. She said that her doctor told her that she may eventually need an EpiPen and she requested this but informed her at age 78 I would be nervous to give her an EpiPen as this would cause a risk of having an DE or cardiac arrythmia. Also I feel that with the patient's anxiety that she would be very quick to use the EpiPen when she may not otherwise need to be using it which could precipitate a bad outcome. I informed her that if she develops any swelling or feels unwell in any way that she should call 911 and be evaluated by the paramedics or come straight to the ER. Patient is agreeable to this will be discharged home. Dictation of this chart was performed using voice recognition software; therefore, there may be some unintended grammatical errors. - Vital Signs Vital signs: Temp Pulse Resp BP Pulse Ox 98.4 F 85 21 H 131/63 H 100 10/22/18 01:48 10/22/18 01:48 10/22/18 00:52 10/22/18 01:48 10/22/18 01:48 Discharge - Discharge Clinical Impression: possible allergic reaction Condition: Good Disposition: HOME, SELF-CARE Additional Instructions: Please continue to take you home medications as prescribed. Please take 25mg of benadryl if you develop a rash, itching, or at first signs of you having an allergic reaction. Please call an ambulance if you develop difficulty breathing, facial swelling, lip swelling, or feel that your symptoms are worsening despite the Benadryl. Please follow up with your doctor in regards to a referral to a roll dough divider. Return to the ER if you have worsening of your symptoms or feel unwell. Referrals: ROSAURA WILLINGHAM PA-C [COMMUNITY BASED STAFF] - Follow up in 3-5 days
[2018-10-22 01:49] VITALS: BP 131/63
== END 2018-10-22 01:59 | disposition home or self-care (01) ==
LOC: ER 00:47
DX: M79.89 Other specified soft tissue disorders (principal); R19.00 Intra-abdominal and pelvic swelling, mass and lump, unspecified site; F41.9 Anxiety disorder, unspecified; I10 Essential (primary) hypertension; J45.909 Unspecified asthma, uncomplicated; Z79.899 Other long term (current) drug therapy; Z88.5 Allergy status to narcotic agent
CPT/HCPCS: 99283

== ENCOUNTER 2018-12-15 04:04 | Emergency (ER) | payer MEDICARE ==
[2018-12-15] MEDS ORDERED: IPRATROPIUM/ALBUTEROL 0.5-2.5 MG/3 ML AMPUL NEB ONE (04:43)
[2018-12-15] MEDS ORDERED: LIDOCAINE 1% INJ-PF (10 MG/ML) 30 ML SDV INJ ONE (04:43)
[2018-12-15 05:16] LABS: ABSOLUTE BASOPHILS # (AUTO) 0.1 10^3/uL (0.0-0.2); ABSOLUTE LYMPHOCYTES (AUTO) 1.4 10^3/uL (0.5-4.7); ABSOLUTE MONOCYTES (AUTO) 0.6 10^3/uL (0.1-1.4); ABSOLUTE NEUT (AUTO) 3.8 10^3/uL (1.7-8.2); BASOPHILS % (AUTO) 1.3 % (0-2); EOSINOPHILS % (AUTO) 0.5 % (0-6); HEMATOCRIT 41.7 % (36.0-47.0); HEMOGLOBIN 13.7 g/dL (12.0-15.5); LYMPHOCYTES % (AUTO) 23.3 % (13-45); MEAN CORPUSCULAR HEMOGLOBIN 28.3 pg (27.0-33.4); MEAN CORPUSCULAR HGB CONC 32.9 g/dL (32.0-36.0); MEAN CORPUSCULAR VOLUME 86 fl (80-97); MONOCYTES % (AUTO) 10.2 % (3-13); PLATELET COUNT 245 10^3/uL (150-450); RED BLOOD COUNT 4.85 10^6/uL (3.72-5.28); RED CELL DISTRIBUTION WIDTH 15.4 % (11.5-14.0); SEGMENTED NEUTROPHILS % (AUTO) 64.7 % (42-78); TOTAL CELLS COUNTED % (AUTO) 100 %; WHITE BLOOD COUNT 5.9 10^3/uL (4.0-10.5)
--- NOTE | 2018-12-15 05:16 | RADIOLOGY REPORT (SQ) ---
EXAM DESCRIPTION: XR CHEST 2 VIEWS COMPLETED DATE/TME: 12/15/2018 04:44 CLINICAL HISTORY: 78 years Female, Congested cough with some hemoptysis COMPARISON: None. NUMBER OF VIEWS/TECHNIQUE: 1/AP FINDINGS: Adequate lung volume, clear parenchyma, normal cardiac silhouette, and intact bony thorax. Atherosclerotic vascular disease. Degenerative disc disease. IMPRESSION: No acute cardiopulmonary findings.
[2018-12-15 05:26] LABS: ALANINE AMINOTRANSFERASE 21 U/L (9-52); ALBUMIN 4.2 g/dL (3.5-5.0); ALKALINE PHOSPHATASE 105 U/L (38-126); ANION GAP 9 (5-19); ASPARTATE AMINO TRANSFERASE 19 U/L (14-36); BILIRUBIN,DIRECT 0.2 mg/dL (0.0-0.4); BILIRUBIN,TOTAL 0.4 mg/dL (0.2-1.3); BLOOD UREA NITROGEN 12 mg/dL (7-20); CALCIUM 9.5 mg/dL (8.4-10.2); CARBON DIOXIDE 27 mmol/L (22-30); CHLORIDE 103 mmol/L (98-107); GLUCOSE 133 mg/dL (75-110); POTASSIUM 4.3 mmol/L (3.6-5.0); SODIUM 138.5 mmol/L (137-145); TOTAL PROTEIN 7.3 g/dL (6.3-8.2)
[2018-12-15] MEDS ORDERED: ALBUTEROL SULFATE HFA (90 MCG/PUFF) 8 GM MDI (1 MDI/ER DISP) IH ONE (05:36)
--- NOTE | 2018-12-15 05:46 | ER Document Report ---
Entered by KEYSHAWN GRACE SCRIBE 12/15/18 0447 Acting as scribe for:LILLIAM FRANCO MD ED Respiratory Problem - General Chief Complaint: Cough Stated Complaint: COUGH Time Seen by Provider: 12/15/18 04:30 Primary Care Provider: MARELY WONG MD [Primary Care Provider] - Follow up as needed Mode of Arrival: Ambulatory Information source: Patient Notes: 78 Year old female that presents to the emergency department today with complaints of a cough with pink tinged sputum. Patient states she has several season allergies and she thinks her cough that began today is related to that. Patient states when she noticed the pinkish color in her sputum she decided to come be evaluated. Patient states she has a "red and blue inhaler" at home and she is "about out of them now". TRAVEL OUTSIDE OF THE [place] IN LAST 30 DAYS: No - Related Data Allergies/Adverse Reactions: acetaminophen [From Percocet] Allergy (Verified 09/26/18 13:53) oxycodone [From Percocet] Allergy (Verified 09/26/18 13:53) aspirin Adverse Reaction (Verified 09/26/18 14:10) Past Medical History - General Information source: Patient - Social History Smoking Status: Former Smoker Cigarette use (# per day): No Frequency of alcohol use: None Drug Abuse: None Lives with: Family Family History: Reviewed & Not Pertinent - Past Medical History Cardiac Medical History: Reports: Hx Hypertension Pulmonary Medical History: Reports: Hx Asthma, Hx Bronchitis, Hx Pneumonia - 10 yrs ago GI Medical History: Reports: Hx Gastroesophageal Reflux Disease Musculoskeletal Medical History: Reports Hx Arthritis Past Surgical History: Reports: Hx Appendectomy, Hx Bowel Surgery - colon resection, Hx Hysterectomy - Immunizations Hx Diphtheria, Pertussis, Tetanus Vaccination: Yes Hx Pneumococcal Vaccination: 12/07/11 Review of Systems - Review of Systems Constitutional: No symptoms reported EENT: No symptoms reported Cardiovascular: No symptoms reported Respiratory: See HPI, Cough, Sputum - pink Gastrointestinal: No symptoms reported Genitourinary: No symptoms reported Female Genitourinary: No symptoms reported Musculoskeletal: No symptoms reported Skin: No symptoms reported Hematologic/Lymphatic: No symptoms reported Neurological/Psychological: No symptoms reported -: Yes All other systems reviewed and negative Physical Exam - Vital signs Vitals: Temp Pulse Resp BP Pulse Ox 98.3 F 95 20 178/67 H 100 12/15/18 04:09 12/15/18 04:09 12/15/18 04:09 12/15/18 04:09 12/15/18 04:09 - Notes Notes: Physical Exam: General: Alert, appears well. HEENT: Normocephalic. Atraumatic. PERRL. Extraocular movements intact. Oropharynx clear. No intraoral lesions or areas that look like they have been bleeding. Neck: Supple. Non-tender. Respiratory: No respiratory distress. Wheezing and rhonchi bilaterally, spitting up white mucus during exam with no blood or pink tinge. Cardiovascular: Regular rate and rhythm. Abdominal: Normal Inspection. Non-tender. No distension. Normal Bowel Sounds. Back: Non-tender. No deformity or step off. Extremities: Moves all four extremities. Upper extremities: Normal inspection. Normal ROM. Lower extremities: Normal inspection. No edema. Normal ROM. Neurological: Normal cognition. AAOx4. Normal speech. Psychological: Normal affect. Normal Mood. Skin: Warm. Dry. Normal color. Course - Re-evaluation Re-evalutation: 12/15/18 05:34 The patient has 2 inhalers with her that were prescribed by her doctor. One has a red Is a pro-air/albuterol inhaler. The other has a bluish purple cap and it is a Ventolin/albuterol inhaler. She was not aware that these were the same drug. She was concerned that the pro-air inhaler was empty. 12/15/18 05:36 The patient's wheezes are improved after the DuoNeb treatment. She still continues to cough and bring up clear to white sputum regularly. - Vital Signs Vital signs: Temp Pulse Resp BP Pulse Ox 98.3 F 95 20 178/67 H 100 12/15/18 04:09 12/15/18 04:09 12/15/18 04:09 12/15/18 04:09 12/15/18 04:09 - Laboratory Result Diagrams: 12/15/18 05:07 12/15/18 05:07 Laboratory results interpreted by me: 12/15/18 12/15/18 05:07 05:07 RDW 15.4 H Glucose 133 H - Diagnostic Test Radiology reviewed: Image reviewed, Reports reviewed - Chest x-ray is unremarkable. Discharge - Discharge Clinical Impression: Bronchitis, Hemoptysis Condition: Stable Disposition: HOME, SELF-CARE Additional Instructions: Hemoptysis: Hemoptysis (coughing up blood) can occur with many different diseases. Most commonly, it's due to an infection such as bronchitis. Although alarming, the presence of blood in the phlegm doesn't change the treatment of bronchitis or pneumonia. The physician has evaluated you to see if there is evidence of an underlying problem requiring further evaluation. If he has recommended further tests, you should follow up as instructed. Hemoptysis without an identifiable cause can be due to tumors or hidden infections. Return for a recheck if the blood increases greatly in amount, or if you develop shortness of breath, high fever, severe chest pain, or other alarming new symptoms. Bronchitis: You have acute bronchitis. This disease is an infection or inflammation of the air passageways in your lungs. Symptoms usually include cough, low grade fever, shortness of breath, and wheezing. The cough usually persists for a couple of weeks. Most cases of bronchitis get better without antibiotics. We prescribe antibiotics when we believe bacteria are damaging your airways, or if there's high risk the bronchitis will worsen into pneumonia. Increase your fluid intake. A cool mist humidifier may make your lungs more comfortable. An expectorant like Robitussin-DM (cough medicine that loosens phlegm) can help. Recovery from bronchitis can be somewhat slow, but you should see improvement within a day or two. Repeated episodes of bronchitis may result in lung damage -- for example, chronic bronchitis, recurrent pneumonias, or emphysema. Call the doctor if you develop increasing fever, shortness of breath, chest pain, bloody sputum, or otherwise worsen. If you have not improved at all after several days, contact the physician. Use your inhaler--2 puffs every 4 hours for wheezing as needed. Drink plenty of water to stay well-hydrated. Try a cough syrup like Robitussin-DM to help decrease your coughing. Get plenty of rest. Follow-up with your doctor this week for recheck if not improving. RETURN TO THE EMERGENCY ROOM IF ANY NEW OR WORSENING SYMPTOMS. Referrals: MARELY WNOG MD [Primary Care Provider] - Follow up as needed Scribe Attestation: 12/15/18 05:14 I personally performed the services described in the documentation, reviewed and edited the documentation which was dictated to the scribe in my presence, and it accurately records my words and actions. I personally performed the services described in the documentation, reviewed and edited the documentation which was dictated to the scribe in my presence, and it accurately records my words and actions.
[2018-12-15 06:01] VITALS: BP 177/67
== END 2018-12-15 06:18 | disposition home or self-care (01) ==
LOC: ER 04:04
DX: J40 Bronchitis, not specified as acute or chronic (principal); R04.2 Hemoptysis; I10 Essential (primary) hypertension; Z88.6 Allergy status to analgesic agent; Z90.710 Acquired absence of both cervix and uterus
CPT/HCPCS: 94640; 99283; 36415; 85025; 80053; 71046; J3490 ×2; A9270; J7620

== ENCOUNTER 2019-05-05 16:40 | Emergency (ER) | payer MEDICARE ==
[2019-05-05] MEDS ORDERED: IBUPROFEN 600 MG TABLET PO ONE (18:00)
--- NOTE | 2019-05-05 18:01 | ER Document Report ---
ED Medical Screen (RME) - General Chief Complaint: Fall Stated Complaint: FALL/BACK PAIN Time Seen by Provider: 05/05/19 17:51 Primary Care Provider: MARELY WONG MD [Primary Care Provider] - Follow up as needed Mode of Arrival: Ambulatory Information source: Patient Notes: Patient is a 78-year-old female who presents to the ER today after she was try to get out of her chair prior to arrival and the chair slid back behind her, making her fall. Patient fell onto her right arm. She is complaining of some low right back pain and right upper arm pain. She denies any pain anywhere else. She denies hitting her head or loss of consciousness. TRAVEL OUTSIDE OF THE [place] IN LAST 30 DAYS: No - Related Data Allergies/Adverse Reactions: oxycodone [From Percocet] Allergy (Verified 05/05/19 16:43) aspirin Adverse Reaction (Verified 05/05/19 16:43) Past Medical History - General Information source: Patient - Social History Chew tobacco use (# tins/day): No Frequency of alcohol use: None Drug Abuse: None - Past Medical History Cardiac Medical History: Reports: Hx Hypertension Denies: Hx Coronary Artery Disease, Hx Heart Attack Pulmonary Medical History: Reports: Hx Asthma, Hx Bronchitis, Hx Pneumonia - 10 yrs ago Denies: Hx COPD Neurological Medical History: Denies: Hx Cerebrovascular Accident, Hx Seizures Renal/ Medical History: Denies: Hx Peritoneal Dialysis GI Medical History: Reports: Hx Gastroesophageal Reflux Disease Musculoskeltal Medical History: Reports Hx Arthritis Past Surgical History: Reports: Hx Appendectomy, Hx Bowel Surgery - colon resection, Hx Hysterectomy. Denies: Hx Pacemaker - Immunizations Hx Diphtheria, Pertussis, Tetanus Vaccination: Yes Review of Systems - Review of Systems Musculoskeletal: See HPI Physical Exam - Vital signs Vitals: Temp Pulse Resp BP Pulse Ox 98.0 F 79 12 158/55 H 97 05/05/19 16:47 05/05/19 16:47 05/05/19 16:47 05/05/19 16:47 05/05/19 16:47 - Notes Notes: PHYSICAL EXAMINATION: GENERAL: Well-appearing and in no acute distress. BACK: Mild lumbar vertebral tenderness, normal ROM EXTREMITIES: Mildly tender to right humerus, normal range of motion, no pitting edema. No cyanosis. Course - Vital Signs Vital signs: Temp Pulse Resp BP Pulse Ox 98.0 F 79 12 158/55 H 97 05/05/19 16:47 05/05/19 16:47 05/05/19 16:47 05/05/19 16:47 05/05/19 16:47 Doctor's Discharge - Discharge Referrals: MARELY WONG MD [Primary Care Provider] - Follow up as needed
--- NOTE | 2019-05-05 18:38 | RADIOLOGY REPORT (SQ) ---
EXAM DESCRIPTION: HUMERUS RIGHT COMPLETED DATE/TIME: 05/05/2019 6:28 pm REASON FOR STUDY: fall, pain COMPARISON: None. NUMBER OF VIEWS: Two views. TECHNIQUE: Two radiographic images were acquired of the right humerus to include elbow and shoulder in at least one projection. LIMITATIONS: None. FINDINGS: MINERALIZATION: Normal. BONES: No acute fracture or dislocation. No worrisome bone lesions. SOFT TISSUES: No obvious swelling or foreign body. OTHER: No other significant finding. IMPRESSION: NEGATIVE STUDY OF THE RIGHT HUMERUS. NO RADIOGRAPHIC EVIDENCE OF ACUTE INJURY. TECHNICAL DOCUMENTATION: JOB ID: [id number]- All Rights Reserved Reading location - IP/workstation name: [email or web address]
--- NOTE | 2019-05-05 18:39 | RADIOLOGY REPORT (SQ) ---
EXAM DESCRIPTION: L SPINE 2 VIEWS COMPLETED DATE/TIME: 05/05/2019 6:28 pm REASON FOR STUDY: fall, pain COMPARISON: None. NUMBER OF VIEWS: Two views. TECHNIQUE: AP and lateral radiographic images acquired of the lumbar spine. LIMITATIONS: None. FINDINGS: MINERALIZATION: Normal. SEGMENTATION: Normal. No transitional anatomy. ALIGNMENT: Grade 1 anterolisthesis of L4 on L5. VERTEBRAE: Maintained height. No fracture or worrisome bone lesion. DISCS: Disc spaces are narrowed from L4-S1. POSTERIOR ELEMENTS: Hypertrophic facet changes from L3-S1. HARDWARE: None in the spine. PARASPINAL SOFT TISSUES: Normal. PELVIS: Intact as visualized. No fractures or worrisome bone lesions. SI joints intact. OTHER: No other significant finding. IMPRESSION: Anterolisthesis of L4 on L5. Degenerative disc disease. Facet arthropathy. TECHNICAL DOCUMENTATION: JOB ID: [id number] [employer]- All Rights Reserved Reading location - IP/workstation name: [email or web address]
--- NOTE | 2019-05-05 20:04 | ER Document Report ---
Addendum entered and electronically signed by SAPPHIRE HAGAN PA-C 05/23/19 08:54: Discharge - Discharge Clinical Impression: Edema of both legs Fall Qualifiers: Encounter type: initial encounter Qualified Code(s): W19.XXXA - Unspecified fall, initial encounter Lumbar strain Qualifiers: Encounter type: initial encounter Qualified Code(s): S39.012A - Strain of muscle, fascia and tendon of lower back, initial encounter Strain of left upper arm Qualifiers: Encounter type: initial encounter Qualified Code(s): S46.912A - Strain of unspecified muscle, fascia and tendon at shoulder and upper arm level, left arm, initial encounter Hypertension Qualifiers: Hypertension type: essential hypertension Qualified Code(s): I10 - Essential (primary) hypertension Condition: Stable Disposition: HOME, SELF-CARE Instructions: High Blood Pressure ([facility]), Low Back Pain ([facility]), Muscle Strain ([facility]) Additional Instructions: FOLLOW UP WITH PRIMARY CARE TOMORROW WITHOUT FAIL. TAKE MEDICINES PRESCRIBED. RETURN IF ANY SHORTNESS OF BREATH< CHEST PAIN, FEVERS, WORSENING PAIN, INABILITY TO WALK. Prescriptions: Methocarbamol [Robaxin] 500 mg PO BID PRN #14 tablet PRN Reason: Referrals: MARELY WONG MD [Primary Care Provider] - Follow up in 3-5 days Original Note: ED General - General Chief Complaint: Fall Stated Complaint: FALL/BACK PAIN Time Seen by Provider: 05/05/19 17:51 Primary Care Provider: MARELY WONG MD [Primary Care Provider] - Follow up in 3-5 days Mode of Arrival: Ambulatory TRAVEL OUTSIDE OF THE [place] IN LAST 30 DAYS: No - HPI Notes: 78-year-old female to the emergency department with complaints of left arm and low back pain after sustaining a mechanical fall this morning. She states that she was getting up to go to another room when she fell striking her arm and hurting her back. She states she did not hit her head. She denies loss of consciousness. She does not have neck pain, chest pain, shortness of breath, abdominal pain, saddle paresthesias, radiculopathy into the back of the legs, Inability to walk, Bladder bowel incontinence, urinary retention. She states that she feels very sore. She has not taken anything since she fell. She also states that she has bilateral leg swelling that has been ongoing for several years. She states that during the heat her legs got more swollen but they are much improved over the past couple of days. She denies any shortness of breath, chest pain in relation to the leg swelling. She denies any recent travel, calf pain, redness to the legs or any other complaints. - Related Data Allergies/Adverse Reactions: oxycodone [From Percocet] Allergy (Verified 05/05/19 16:43) aspirin Adverse Reaction (Verified 05/05/19 16:43) Past Medical History - General Information source: Patient - Social History Smoking Status: Never Smoker Chew tobacco use (# tins/day): No Frequency of alcohol use: None Drug Abuse: None Lives with: Family Family History: Reviewed & Not Pertinent Patient has suicidal ideation: No Patient has homicidal ideation: No - Past Medical History Cardiac Medical History: Reports: Hx Hypertension Denies: Hx Coronary Artery Disease, Hx Heart Attack Pulmonary Medical History: Reports: Hx Asthma, Hx Bronchitis, Hx Pneumonia - 10 yrs ago Denies: Hx COPD Neurological Medical History: Denies: Hx Cerebrovascular Accident, Hx Seizures Renal/ Medical History: Denies: Hx Peritoneal Dialysis GI Medical History: Reports: Hx Gastroesophageal Reflux Disease Musculoskeletal Medical History: Reports Hx Arthritis Past Surgical History: Reports: Hx Appendectomy, Hx Bowel Surgery - colon resection, Hx Hysterectomy. Denies: Hx Pacemaker - Immunizations Hx Diphtheria, Pertussis, Tetanus Vaccination: Yes Hx Pneumococcal Vaccination: 12/07/11 Review of Systems - Review of Systems Notes: Constitutional: Negative for fever. HENT: Negative for sore throat. Eyes: Negative for visual changes. Cardiovascular: Negative for chest pain. Respiratory: Negative for shortness of breath. Gastrointestinal: Negative for abdominal pain, vomiting or diarrhea. Genitourinary: Negative for dysuria. Musculoskeletal: + low back pain, + left arm pain Skin: Negative for rash. Neurological: Negative for headaches, weakness or numbness. All other systems were reviewed and negative Physical Exam - Vital signs Vitals: Temp Pulse Resp BP Pulse Ox 98.0 F 79 12 158/55 H 97 05/05/19 16:47 05/05/19 16:47 05/05/19 16:47 05/05/19 16:47 05/05/19 16:47 - General General appearance: Appears well In distress: None - HEENT Head: Normocephalic, Atraumatic Eyes: Normal Pupils: PERRL - Respiratory Respiratory status: No respiratory distress Chest status: Nontender Breath sounds: Normal Chest palpation: Normal - Cardiovascular Rhythm: Regular Heart sounds: Normal auscultation Murmur: No Notes: + bilateral 1+ pitting edema to bilateral legs with no erythema or warmth -- patient states that this is a significant improvement over the past several days. - Abdominal Inspection: Normal Distension: No distension Bowel sounds: Normal Tenderness: Nontender Organomegaly: No organomegaly - Back Notes: Positive tenderness to palpation over the midline lumbar spine and over to the left lumbar paraspinal with noted muscular spasm. Negative straight leg raise bilaterally. Negative tenderness to palpation to the midline cervical and thoracic spine with no step-off or deformity. - Extremities Notes: Mild tenderness to palpation over the left anterior joint of the left shoulder and tenderness to palpation over the upper arm without any deformity, ecchymosis, dislocation. Patient has full range of motion in forward flexion, extension, abduction, adduction and rotation of the left older. Nontender to palpation over the left elbow, left wrist and hand. Bilateral hand apprise counselor is 5 out of 5. Radial pulses intact and equal. Cap refill is less than 2 seconds - Neurological Neuro grossly intact: Yes Cognition: Normal Orientation: AAOx4 Custer Coma Scale Eye Opening: Spontaneous Alex Coma Scale Verbal: Oriented Custer Coma Scale Motor: Obeys Commands Custer Coma Scale Total: 15 Speech: Normal Motor strength normal: LUE, RUE, LLE, RLE Sensory: Normal - Psychological Associated symptoms: Normal affect, Normal mood - Skin Skin Temperature: Warm Skin Moisture: Dry Skin Color: Normal Course - Re-evaluation Re-evalutation: Impression: Mechanical fall, left arm strain, low back strain. X-rays are reassuring for no dislocation, separation, fracture. Will send patient home with muscle relaxants. We will have her follow closely with primary care. - Vital Signs Vital signs: Temp Pulse Resp BP Pulse Ox 97.4 F 63 18 146/50 H 99 05/05/19 21:07 05/05/19 21:07 05/05/19 21:07 05/05/19 21:07 05/05/19 21:07 Discharge - Discharge Clinical Impression: Strain of left upper arm, Hypertension, Edema of both legs Fall Qualifiers: Encounter type: initial encounter Qualified Code(s): W19.XXXA - Unspecified fall, initial encounter Lumbar strain Qualifiers: Encounter type: initial encounter Qualified Code(s): S39.012A - Strain of muscle, fascia and tendon of lower back, initial encounter Condition: Stable Disposition: HOME, SELF-CARE Instructions: High Blood Pressure ([facility]), Low Back Pain ([facility]), Muscle Strain ([facility]) Additional Instructions: FOLLOW UP WITH PRIMARY CARE TOMORROW WITHOUT FAIL. TAKE MEDICINES PRESCRIBED. RETURN IF ANY SHORTNESS OF BREATH< CHEST PAIN, FEVERS, WORSENING PAIN, INABILITY TO WALK. Prescriptions: Methocarbamol [Robaxin] 500 mg PO BID PRN #14 tablet PRN Reason: Referrals: MARELY WONG MD [Primary Care Provider] - Follow up in 3-5 days
[2019-05-05 21:09] VITALS: BP 146/50
== END 2019-05-05 21:26 | disposition home or self-care (01) ==
LOC: ER 16:40
DX: S39.012A Strain of muscle, fascia and tendon of lower back, initial encounter (principal); S46.912A Strain of unspecified muscle, fascia and tendon at shoulder and upper arm level, left arm, initial encounter; W19.XXXA Unspecified fall, initial encounter; Y93.89 Activity, other specified; I10 Essential (primary) hypertension; R60.0 Localized edema; J45.909 Unspecified asthma, uncomplicated; Z88.5 Allergy status to narcotic agent
CPT/HCPCS: 99283; 73060; 72100; A9270

== ENCOUNTER 2019-10-24 16:09 | Emergency (ER) | payer OTHER, MEDICARE ==
[2019-10-24] MEDS ORDERED: ACETAMINOPHEN 325 MG TABLET PO ONE (16:22)
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
[2019-10-24 16:29] VITALS: BP 175/67
== END 2019-10-24 16:36 | disposition home or self-care (01) ==
LOC: ER 16:09
DX: M54.2 Cervicalgia (principal); V87.7XXA Person injured in collision between other specified motor vehicles (traffic), initial encounter; I10 Essential (primary) hypertension; J45.909 Unspecified asthma, uncomplicated
CPT/HCPCS: 99283; L0120

== ENCOUNTER 2019-12-06 20:25 | Emergency (ER) | payer MEDICARE, OTHER ==
[2019-12-06] MEDS ORDERED: IPRATROPIUM/ALBUTEROL 0.5-2.5 MG/3 ML AMPUL NEB ONE (21:12)
[2019-12-06] MEDS ORDERED: METHYLPREDNISOLONE INJ 125 MG/2 ML SDV IV ONE (21:13)
--- NOTE | 2019-12-06 21:15 | ER Document Report ---
ED Medical Screen (RME) - General Chief Complaint: Shortness Of Breath Stated Complaint: COUGH,SHORTNESS OF BREATH Time Seen by Provider: 12/06/19 21:03 Primary Care Provider: LIZBETH BEASLEY MD [Primary Care Provider] - Follow up as needed TRAVEL OUTSIDE OF THE [place] IN LAST 30 DAYS: No - HPI Notes: 12/06/19 21:14 79-year-old female to the emergency department with complaints of cough and shortness of breath that started today. She states that she has been wheezing and feeling "out of it" for most of the day. She denies any fevers or chills. She states that her daughter was just recently diagnosed with the flu. She denies any chest pain or abdominal pain. She does admit to bilateral leg swelling. She denies a history of congestive heart failure but states that she is on "fluid pills". She is not diabetic. She is never had a history of asthma and she is not a COPD patient. She is not a smoker. I performed a brief medical screening exam on the patient determined that the patient needs further evaluation and management by main side provider. I have placed initial orders to help expedite care. - Related Data Allergies/Adverse Reactions: oxycodone [From Percocet] Allergy (Verified 10/24/19 16:17) aspirin Adverse Reaction (Verified 10/24/19 16:17) Home Medications: BP med. lasix Past Medical History - Social History Chew tobacco use (# tins/day): No Frequency of alcohol use: None Drug Abuse: None - Past Medical History Cardiac Medical History: Reports: Hx Hypertension Denies: Hx Coronary Artery Disease, Hx Heart Attack Pulmonary Medical History: Reports: Hx Asthma, Hx Bronchitis, Hx Pneumonia - 10 yrs ago Denies: Hx COPD Neurological Medical History: Denies: Hx Cerebrovascular Accident, Hx Seizures Renal/ Medical History: Denies: Hx Peritoneal Dialysis GI Medical History: Reports: Hx Gastroesophageal Reflux Disease Musculoskeltal Medical History: Reports Hx Arthritis Past Surgical History: Reports: Hx Appendectomy, Hx Bowel Surgery - colon resection, Hx Hysterectomy. Denies: Hx Pacemaker - Immunizations Hx Diphtheria, Pertussis, Tetanus Vaccination: Yes Physical Exam - Vital signs Vitals: Temp Pulse Resp BP Pulse Ox 98.1 F 84 24 H 150/74 H 97 12/06/19 20:40 12/06/19 20:40 12/06/19 20:40 12/06/19 20:40 12/06/19 20:40 Course - Vital Signs Vital signs: Temp Pulse Resp BP Pulse Ox 98.1 F 84 24 H 150/74 H 97 12/06/19 20:40 12/06/19 20:40 12/06/19 20:40 12/06/19 20:40 12/06/19 20:40 Doctor's Discharge - Discharge Referrals: LIZBETH BEASLEY MD [Primary Care Provider] - Follow up as needed
[2019-12-06] MEDS ORDERED: ONDANSETRON 4 MG TAB.RAPDIS PO ONE (22:25)
[2019-12-06 22:35] LABS: HEMOGLOBIN 14.6 g/dL (12.0-15.5); MEAN CORPUSCULAR HEMOGLOBIN 28.4 pg (27.0-33.4); MEAN CORPUSCULAR HGB CONC 33.2 g/dL (32.0-36.0); MEAN CORPUSCULAR VOLUME 86 fl (80-97); PLATELET COUNT 205 10^3/uL (150-450); RED BLOOD COUNT 5.15 10^6/uL (3.72-5.28); RED CELL DISTRIBUTION WIDTH 14.2 % (11.5-14.0)
[2019-12-06 22:44] LABS: A TYPE INFLUENZA AG NEGATIVE (NEGATIVE); B INFLUENZA AG NEGATIVE (NEGATIVE)
[2019-12-06 22:52] LABS: ALKALINE PHOSPHATASE 91 U/L (38-126); ANION GAP 11 (5-19); ASPARTATE AMINO TRANSFERASE 31 U/L (14-36); BILIRUBIN,DIRECT 0.3 mg/dL (0.0-0.4); BILIRUBIN,TOTAL 0.4 mg/dL (0.2-1.3); BLOOD UREA NITROGEN 14 mg/dL (7-20); CARBON DIOXIDE 30 mmol/L (22-30); CHLORIDE 97 mmol/L (98-107); GLUCOSE 78 mg/dL (75-110); POTASSIUM 3.4 mmol/L (3.6-5.0); TOTAL PROTEIN 7.4 g/dL (6.3-8.2)
[2019-12-06 23:02] LABS: ABSOLUTE LYMPHOCYTES# (MANUAL) 1.9 10^3/uL (0.5-4.7); ABSOLUTE MONOCYTES # (MANUAL) 0.2 10^3/uL (0.1-1.4); ANISOCYTOSIS SLIGHT; BASOPHILS % (MANUAL) 2 % (0-2); EOSINOPHILS % (MANUAL) 3 % (0-6); LYMPHOCYTES % (MANUAL) 47 % (13-45); MONOCYTES % (MANUAL) 4 % (3-13); PLATELET COMMENT ADEQUATE; SEGMENTED NEUTROPHILS % (MAN) 44 % (42-78); TOTAL CELLS COUNTED 100
[2019-12-06 23:08] LABS: NT PRO BNP 44 pg/mL (<450)
--- NOTE | 2019-12-06 23:12 | RADIOLOGY REPORT (SQ) ---
EXAM DESCRIPTION: XR CHEST 2 VIEWS COMPLETED DATE/TME: 12/06/2019 21:12 CLINICAL HISTORY: cough, wheezing COMPARISON: 12/15/2018 FINDINGS: Frontal and lateral views of the chest. Cardiomediastinal silhouette: Atherosclerotic calcification of the thoracic aorta. Heart is not enlarged. Lungs: No consolidation, pneumothorax, or pleural effusion. Bones: Degenerative change of the spine. Upper abdomen: No abnormality identified. IMPRESSION: 1. No acute pulmonary process identified.
--- NOTE | 2019-12-06 23:13 | EKG REPORT ---
SEVERITY:- OTHERWISE NORMAL ECG - SINUS RHYTHM BORDERLINE LEFT AXIS DEVIATION : Confirmed by: Adonay Nathan 06-Dec-2019 23:12:55
[2019-12-06 23:26] LABS: TROPONIN I < 0.012 ng/mL
[2019-12-07 01:43] LABS: APPEARANCE,URINE CLEAR; BILIRUBIN,URINE NEGATIVE (NEGATIVE); COLOR,URINE YELLOW; GLUCOSE, URINE NEGATIVE (NEGATIVE); KETONES,URINE 20 mg/dL (NEGATIVE); LEUKOCYTE ESTERASE,URINE NEGATIVE (NEGATIVE); NITRITE,URINE NEGATIVE (NEGATIVE); PROTEIN,URINE NEGATIVE (NEGATIVE); URINE SPECIFIC GRAVITY 1.018; UROBILINOGEN,URINE NEGATIVE mg/dL (<2.0)
--- NOTE | 2019-12-07 02:05 | RADIOLOGY REPORT (SQ) ---
EXAM DESCRIPTION: XR ABDOMEN 1 VIEW (KUB) COMPLETED DATE/TME: 12/07/2019 00:02 CLINICAL HISTORY: 79 years, Female, abdominal distension COMPARISON: None. NUMBER OF VIEWS: 1 TECHNIQUE: AP abdomen LIMITATIONS: None. FINDINGS: The bowel gas pattern is nonspecific. Large amount stool in the colon. Evaluation for free air limited on a supine view. Degenerative change lumbar spine IMPRESSION: Abundant stool in the colon copyright 2010 [employer]- All Rights Reserved
--- NOTE | 2019-12-07 03:30 | ER Document Report ---
Entered by LAQUITA CANO SCRIBE 12/06/19 0129 Acting as scribe for:INDY MARQUES MD ED General - General Chief Complaint: Shortness Of Breath Stated Complaint: COUGH,SHORTNESS OF BREATH Time Seen by Provider: 12/06/19 21:03 Primary Care Provider: LIZBETH BEASLEY MD [Primary Care Provider] - Follow up as needed Information source: Patient, Relative Notes: 79-year-old female presents to the emergency department complaining that she is "feeling her self swell from the inside" since this morning. Patient states that usually she swells in her lower extremities and then in her abdomen. Patient added that she has not felt like this before where she feels like she is swelling in her abdomen. Patient reports that she has had normal bowel movements. Patient denies nausea, fever, chills, vomiting and chest pain. Patient reports a cough with clear sputum. TRAVEL OUTSIDE OF THE [place] IN LAST 30 DAYS: No - Related Data Allergies/Adverse Reactions: oxycodone [From Percocet] Allergy (Verified 10/24/19 16:17) aspirin Adverse Reaction (Verified 10/24/19 16:17) Home Medications: BP med. lasix Past Medical History - General Information source: Patient - Social History Smoking Status: Never Smoker Cigarette use (# per day): No Chew tobacco use (# tins/day): No Frequency of alcohol use: None Drug Abuse: None Lives with: Spouse/Significant other Family History: Reviewed & Not Pertinent Patient has suicidal ideation: No Patient has homicidal ideation: No - Past Medical History Cardiac Medical History: Reports: Hx Hypertension Pulmonary Medical History: Reports: Hx Asthma, Hx Bronchitis, Hx Pneumonia - 10 yrs ago Endocrine Medical History: Reports: Hx Diabetes Mellitus Type 2 GI Medical History: Reports: Hx Gastroesophageal Reflux Disease Musculoskeletal Medical History: Reports Hx Arthritis Psychiatric Medical History: Reports: Hx Anxiety, Hx Depression Past Surgical History: Reports: Hx Appendectomy, Hx Bowel Surgery - colon resection, Hx Hysterectomy - Immunizations Hx Diphtheria, Pertussis, Tetanus Vaccination: Yes Hx Pneumococcal Vaccination: 12/07/11 Review of Systems - Review of Systems Constitutional: See HPI. denies: Chills, Fever EENT: No symptoms reported Cardiovascular: See HPI. denies: Chest pain Respiratory: See HPI, Cough, Sputum Gastrointestinal: See HPI, Abdomen distended Genitourinary: No symptoms reported Female Genitourinary: No symptoms reported Musculoskeletal: No symptoms reported Skin: No symptoms reported Hematologic/Lymphatic: No symptoms reported Neurological/Psychological: No symptoms reported -: Yes All other systems reviewed and negative Physical Exam - Vital signs Vitals: Temp Pulse Resp BP Pulse Ox 98.1 F 84 24 H 150/74 H 97 12/06/19 20:40 12/06/19 20:40 12/06/19 20:40 12/06/19 20:40 12/06/19 20:40 - Notes Notes: Physical Exam: General: Alert, appears well. HEENT: Normocephalic. Atraumatic. PERRL. Extraocular movements intact. Oropharynx clear. Neck: Supple. Non-tender. Respiratory: No respiratory distress. Mild wheezing bilaterally. Cardiovascular: Regular rate and rhythm. Abdominal: Normal Inspection. Non-tender. No distension. Normal Bowel Sounds. Back: No gross abnormalities. Extremities: Moves all four extremities. Upper extremities: Normal inspection. Normal ROM. Lower extremities: Normal inspection. Edema. Normal ROM. Neurological: Normal cognition. AAOx4. Normal speech. Psychological: Normal affect. Normal Mood. Skin: Warm. Dry. Normal color. Course - Re-evaluation Re-evalutation: 12/07/19 03:27 Patient alert states she is ready to go home. Discussed her findings of her most recent lab showing a troponin that continues to be 0.012 which is within the normal limits. Also patient had a KUB x-ray that showed moderate amount of stool stasis no obstruction no other acute process. Discussed at length with patient that she needs to have better more frequent bowel movements on a daily basis and recommend that she take [id number] MiraLAX. - Vital Signs Vital signs: Temp Pulse Resp BP Pulse Ox 98.1 F 84 19 144/76 H 97 12/06/19 20:40 12/06/19 20:40 12/07/19 03:01 12/07/19 03:01 12/07/19 03:01 - Laboratory Result Diagrams: 12/06/19 21:55 12/06/19 21:55 Laboratory results interpreted by me: 12/06/19 12/06/19 12/07/19 21:55 21:55 01:20 RDW 14.2 H Lymphocytes % (Manual) 47 H Potassium 3.4 L Chloride 97 L Urine Ketones 20 H - Diagnostic Test Radiology reviewed: Image reviewed, Reports reviewed Radiology results interpreted by me: 12/07/19 03:28 Chest x-ray 1 view shows no acute process no cardiopulmonary disease noted. KUB 1 view showed moderate amount of retained stool in the colon no obstructive process no other acute problem. Discharge - Discharge Clinical Impression: Constipation by delayed colonic transit Condition: Stable Disposition: HOME, SELF-CARE Additional Instructions: Constipation Constipation is a common problem. It is especially likely as you get older. Constipation is a common cause of abdominal pain, but sometimes causes no symptoms at all. Causes of constipation include certain medications, dehydration, diets, inactivity, and low-fiber intake. Rarely, it can be a symptom of underlying disease. The physician has evaluated you for this. Avoid constipation by eating a diet high in fiber, fruits, and vegetables. Drink plenty of liquids. Get regular exercise. If possible, avoid constipating medicines like narcotic pain medication. Some vitamin tablets can cause constipation. Stool softeners may be needed for difficult cases. An excellent stool softener is Konsyl which is available at [employer]. Just add a teaspoon to a glass of pineapple or orange juice daily or twice a day if needed. Laxatives are useful for occasional constipation. You should use them only when necessary. Too-frequent use can make your bowels dependent on them. Some over the counter laxatives available without prescription are: Milk of Magnesia, 1-2 tablespoons twice a day Dulcolax, 5 mg pill or 10 mg suppository. Citrate of Magnesia, 4-5 ounces a day for a day or two For acute constipation, Fleet's Enemas and Dulcolax suppositories are helpful. Chronic, long term care administrator use of laxatives or enemas is not a good idea. Your bowel may become dependant on them. You do not need to have a bowel movement every day. Many people do fine with a bowel movement every three or four days. You should call your doctor or return for re-evaluation if you pass blood in the stool, or if you develop fever or increasing abdominal pain. Recommend that daily MiraLAX until bowel movements have become regular every day. Referrals: LIZBETH BEASLEY MD [Primary Care Provider] - Follow up as needed I personally performed the services described in the documentation, reviewed and edited the documentation which was dictated to the scribe in my presence, and it accurately records my words and actions.
[2019-12-07 03:46] VITALS: BP 148/94
== END 2019-12-07 03:46 | disposition home or self-care (01) ==
LOC: ER 20:25
DX: K59.01 Slow transit constipation (principal); J45.909 Unspecified asthma, uncomplicated; R05 Cough; E11.9 Type 2 diabetes mellitus without complications; I10 Essential (primary) hypertension; Z79.899 Other long term (current) drug therapy; Z88.6 Allergy status to analgesic agent; Z88.5 Allergy status to narcotic agent; Z87.01 Personal history of pneumonia (recurrent)
CPT/HCPCS: 93005; 94640; 99284; 96374; 36415; 85025; 80053; 81001; 84484; 87804; 83880; 71046; 74018; 93010; J2930; A9270; J7620

== ENCOUNTER 2020-06-06 07:00 | Emergency (ER) | payer MEDICARE ==
--- NOTE | 2020-06-06 10:34 | ER Document Report ---
Entered by KANU FERNANDEZ SCRIBE 06/06/20 0947 Acting as scribe for:INDY MARQUES MD ED General - General Chief Complaint: Other Stated Complaint: INGESTED HYDROGEN PEROXIDE Time Seen by Provider: 06/06/20 08:47 Primary Care Provider: MARELY WONG MD [Primary Care Provider] - Follow up as needed Information source: Patient Notes: This 79 year old female patient presents to the emergency department today with ingestion of hydrogen peroxide. Patient states she was reaching for a laxative on her nightstand this morning and and accidentally drank from the wrong bottle. Per EMS, patient accidentally ingested x1 teaspoon of hydrogen peroxide 3%. Patient denies trouble swallowing, N/V, or throat pain. Patient states her last bowel movement was in the ED prior to being seen. TRAVEL OUTSIDE OF THE [place] IN LAST 30 DAYS: No - Related Data Allergies/Adverse Reactions: oxycodone [From Percocet] Allergy (Verified 06/06/20 07:17) aspirin Adverse Reaction (Verified 06/06/20 07:17) Home Medications: Lactulose Past Medical History - General Information source: Patient - Social History Smoking Status: Never Smoker Cigarette use (# per day): No Chew tobacco use (# tins/day): No Frequency of alcohol use: None Drug Abuse: None Family History: Reviewed & Not Pertinent Patient has homicidal ideation: No - Past Medical History Cardiac Medical History: Reports: Hx Hypertension Pulmonary Medical History: Reports: Hx Asthma, Hx Bronchitis, Hx Pneumonia - 10 yrs ago Endocrine Medical History: Reports: Hx Diabetes Mellitus Type 2 GI Medical History: Reports: Hx Gastroesophageal Reflux Disease Musculoskeletal Medical History: Reports Hx Arthritis Psychiatric Medical History: Reports: Hx Anxiety, Hx Depression Past Surgical History: Reports: Hx Appendectomy, Hx Bowel Surgery - colon resection, Hx Hysterectomy - Immunizations Hx Diphtheria, Pertussis, Tetanus Vaccination: Yes Hx Pneumococcal Vaccination: 12/07/11 Review of Systems - Review of Systems Constitutional: No symptoms reported EENT: See HPI. denies: Throat pain, Difficulty swallowing Cardiovascular: No symptoms reported Respiratory: No symptoms reported Gastrointestinal: See HPI, Last bowel movement - today, Other - Ingested hydrogen peroxide. denies: Nausea, Vomiting Genitourinary: No symptoms reported Female Genitourinary: No symptoms reported Musculoskeletal: No symptoms reported Skin: No symptoms reported Hematologic/Lymphatic: No symptoms reported Neurological/Psychological: No symptoms reported -: Yes All other systems reviewed and negative Physical Exam - Vital signs Vitals: Temp Pulse Resp BP Pulse Ox 98.2 F 69 16 161/63 H 100 06/06/20 07:16 06/06/20 07:16 06/06/20 07:16 06/06/20 07:16 06/06/20 07:16 - General General appearance: Alert, Anxious - HEENT Head: Normocephalic, Atraumatic Eyes: Normal Pupils: PERRL Notes: Pharynx is without erythema. Airway is clear and not potentially compromised. - Respiratory Respiratory status: No respiratory distress Chest status: Nontender Breath sounds: Normal Chest palpation: Normal - Cardiovascular Rhythm: Regular Heart sounds: Normal auscultation Murmur: No - Abdominal Inspection: Normal Distension: No distension Bowel sounds: Normal Tenderness: Nontender - Extremities General upper extremity: Normal inspection. No: Edema General lower extremity: Normal inspection. No: Edema - Neurological Neuro grossly intact: Yes Cognition: Normal Orientation: AAOx4 Speech: Normal - Psychological Associated symptoms: Normal affect, Anxious - Skin Skin Temperature: Warm Skin Moisture: Dry Skin Color: Normal Course - Re-evaluation Re-evalutation: 06/06/20 10:34 Patient resting comfortably not showing any signs of distress at this time. - Vital Signs Vital signs: Temp Pulse Resp BP Pulse Ox 98.2 F 69 16 161/63 H 100 06/06/20 07:16 06/06/20 07:16 06/06/20 07:16 06/06/20 07:16 06/06/20 07:16 06/06/20 10:34 Vital signs stable no acute process Discharge - Discharge Clinical Impression: Accidental ingestion of substance Condition: Stable Disposition: HOME, SELF-CARE Additional Instructions: Always look at the bowel before you ingested contents of the bottle. That would avoid you from having a ingestion of any substances you are not intending to take. Referrals: MARELY WONG MD [Primary Care Provider] - Follow up as needed I personally performed the services described in the documentation, reviewed and edited the documentation which was dictated to the scribe in my presence, and it accurately records my words and actions.
[2020-06-06 11:15] VITALS: BP 146/52
== END 2020-06-06 11:16 | disposition home or self-care (01) ==
LOC: ER 07:00
DX: T49.0X1A Poisoning by local antifungal, anti-infective and anti-inflammatory drugs, accidental (unintentional), initial encounter (principal); Y93.89 Activity, other specified; I10 Essential (primary) hypertension; J45.909 Unspecified asthma, uncomplicated; E11.9 Type 2 diabetes mellitus without complications; Z79.899 Other long term (current) drug therapy; Z88.6 Allergy status to analgesic agent; Z88.5 Allergy status to narcotic agent
CPT/HCPCS: 99282

== ENCOUNTER 2020-10-06 12:20 | Emergency (ER) | payer MEDICARE ==
[2020-10-06 12:29] VITALS: BP 182/66
--- NOTE | 2020-10-06 13:33 | ER Document Report ---
ED Oral Problem - General Chief Complaint: Mouth Problem Stated Complaint: MOUTH PAIN Time Seen by Provider: 10/06/20 13:27 Primary Care Provider: MARELY WONG MD [Primary Care Provider] - Follow up as needed Mode of Arrival: Ambulatory Information source: Patient Notes: 80-year-old female presented to ED for complaint of pain to the right lower jaw is #28. States it started hurting yesterday and with the holiday coming on she was afraid she needed to get some antibiotics now before it got bad. She states she does have Tylenol at home to take she just needs some antibiotics she knows she will be able to get into a dentist for a while. The tooth is gone down to the gums but the gums are swollen and red. Will start her on penicillin VK and give her a prescription for penicillin VK. She does know she needs to follow-up with a dentist. Constitutional: Negative for fever. HENT: Swelling and pain tooth #28. 28 and 27 are both broken off at the gumline there is mild redness and swelling to the gums Eyes: Negative for visual changes. Cardiovascular: Negative for chest pain. Respiratory: Negative for shortness of breath. Gastrointestinal: Negative for abdominal pain, vomiting or diarrhea. Genitourinary: Negative for dysuria. Musculoskeletal: Negative for back pain. Skin: Negative for rash. Neurological: Negative for headaches, weakness or numbness. 10 point ROS negative except as marked above and in HPI. PHYSICAL EXAMINATION: GENERAL: Well-appearing, well-nourished and in no acute distress. HEAD: Atraumatic, normocephalic. EYES: Pupils equal round extraocular movements intact, conjunctiva are normal. ENT: Swelling and pain tenderness to tooth #28 gumlines around tooth #28 is off at the gumline very dark tender to palpation NECK: Normal range of motion LUNGS: No respiratory distress Musculoskeletal: Normal range of motion NEUROLOGICAL: Normal speech, normal gait. PSYCH: Normal mood, normal affect. SKIN: Warm, Dry, normal turgor, no rashes or lesions noted. TRAVEL OUTSIDE OF THE [place] IN LAST 30 DAYS: No - HPI Patient complains to provider of: Toothache Onset: Yesterday Onset: Gradual Quality of pain: Achy Pain Level: 2 Associated symptoms: Toothache Worsened by: Nothing Relieved by: Nothing Similar symptoms previously: Yes Recently seen / treated by doctor/dentist: No - Related Data Allergies/Adverse Reactions: oxycodone [From Percocet] Allergy (Verified 06/06/20 07:17) aspirin Adverse Reaction (Verified 06/06/20 07:17) Past Medical History - General Information source: Patient - Social History Smoking Status: Former Smoker Frequency of alcohol use: None Drug Abuse: None Lives with: Family Family History: Reviewed & Not Pertinent Patient has suicidal ideation: No Patient has homicidal ideation: No - Past Medical History Cardiac Medical History: Reports: Hx Hypertension Pulmonary Medical History: Reports: Hx Asthma, Hx Bronchitis, Hx Pneumonia - 10 yrs ago EENT Medical History: Reports: None Neurological Medical History: Reports: None Endocrine Medical History: Reports: Hx Diabetes Mellitus Type 2 Renal/ Medical History: Reports: None Malignancy Medical History: Reports: None GI Medical History: Reports: Hx Diverticulitis, Hx Gastroesophageal Reflux Disease, Hx Colonoscopy, Hx Endoscopy Musculoskeletal Medical History: Reports Hx Arthritis Skin Medical History: Reports None Psychiatric Medical History: Reports: Hx Anxiety, Hx Depression Traumatic Medical History: Reports: None Infectious Medical History: Reports: None Past Surgical History: Reports: Hx Appendectomy, Hx Bowel Surgery - colon resection, Hx Hysterectomy - Immunizations Immunizations up to date: No Hx Diphtheria, Pertussis, Tetanus Vaccination: No Hx Pneumococcal Vaccination: 12/07/11 History of Influenza Vaccine for 07/2019 - 12/2019 Season: Yes Physical Exam - Vital signs Vitals: Temp Pulse Resp BP Pulse Ox 98.5 F 80 16 182/66 H 98 10/06/20 12:25 10/06/20 12:25 10/06/20 12:25 10/06/20 12:25 10/06/20 12:25 Course - Vital Signs Vital signs: Temp Pulse Resp BP Pulse Ox 98.5 F 80 16 182/66 H 98 10/06/20 12:25 10/06/20 12:25 10/06/20 12:25 10/06/20 12:25 10/06/20 12:25 - Laboratory Results Critical Laboratory Results Reviewed: No Critical Results - Radiology Results Critical Radiology Results Reviewed: No Critical Results Discharge - Discharge Clinical Impression: Pain due to dental caries Condition: Stable Disposition: HOME, SELF-CARE Additional Instructions: TOOTHACHE: Your pain is due to dental decay. The tooth must be repaired in order for you to feel better. You will, therefore, be referred to a dentist. We do not have dentists on the staff at [facility]. Severe swelling or drainage around a tooth usually means a dental abscess. This also requires evaluation and treatment by the dentist, but antibiotics may be prescribed while awaiting dental treatment. You should be rechecked immediately if you develop major swelling of the face, increasing pain, a lump in the jaw or gums, headache, difficulty swallowing, or fever. PENICILLIN V K: You have been given a prescription for Penicillin VK. Your physician has determined that this is the best antibiotic for your condition. Pen VK can be taken with meals, however more of the antibiotic gets into the bloodstream if it's taken on an empty stomach. Penicillin usually has no side effects. However, allergy to penicillins is common. If you have had an allergic reaction to any drug of the penicillin family, you should never take any other penicillin. Notify your doctor at once if you develop hives, itching, swelling, faintness, or shortness of breath. FOLLOW-UP CARE: You have been referred for follow-up care to the dentists listed below. Call the dentists office for an appointment as you were instructed or within the next two days. If you experience worsening or a significant change in your symptoms, notify the physician immediately or return to the Emergency Department at any time for re-evaluation. [facility] [address] [place] [address] [facility] [address] [facility] [address] [facility] [address] [facility] [email or web address] [facility] [address] [place] [address] Saturday- 8:00am to 5:00 pm Will see patients from other [facility]. Charges based on income and family size and accepts Medicare, Medicaid, and Insurances Will pull molars [facility] [place] [address] Hours of Operation 8:00 am - 4:30 pm weekdays The following dental offices accept Medicaid: [facility] Dr. Isaac Dr. Ruffin Dr. Glass Dr. Holman Narciso Bentley, [place], and [place] oral surgery Dr. Pollock ([place]) Dr. Frankel ([place]) [facility] Drs. Pineda and Nelson ([place]) Dr. Rosario ([place]) [facility] Dr. Stark ([place]) Drs. Cormier and ([place]) Medicaid Care Line Prescriptions: Penicillin V Potassium [Penicillin Vk 500 mg Tablet] 500 mg PO BID #20 tablet Forms: Elevated Blood Pressure Referrals: MARELY WONG MD [Primary Care Provider] - Follow up as needed
[2020-10-06] MEDS ORDERED: PENICILLIN V POTASSIUM 500 MG TABLET PO ONE (13:34)
== END 2020-10-06 13:54 | disposition home or self-care (01) ==
LOC: ER 12:20
DX: K02.9 Dental caries, unspecified (principal); R68.84 Jaw pain; I10 Essential (primary) hypertension; E11.9 Type 2 diabetes mellitus without complications
CPT/HCPCS: 99283; A9270